=== PATIENT | male | born 1975 | race Caucasian/White ===

== ENCOUNTER 2016-07-23 06:29 | Emergency (ER) | payer MEDICAID ==
--- NOTE | 2016-07-23 06:29 | EDPHY ---
H & P Time Seen by Provider: 07/23/16 06:29 HPI/ROS: CHIEF COMPLAINT: Nausea vomiting and alcohol withdrawal HISTORY OF PRESENT ILLNESS: This 40-year-old man presents with but full body pain and tremors and vomiting after stopping alcohol last night. He says he has not been sober for 8 months. This morning at 200 he started feeling tremulous and had body aches and nausea and vomiting without hematemesis or coffee-ground emesis. Symptoms moderate. He received 100 mcg of fentanyl IV from the paramedics as well as intravenous Phenergan and now feels a little bit better. He does not have a history of alcohol withdrawal seizures or delirium tremens. REVIEW OF SYSTEMS: Eye: no change in vision ENT: no sore throat Cardiac: no chest pain or syncope Pulmonary: no cough or SOB Abdomen: HPI, no specific abdominal pain Musculoskeletal: no back pain Skin: no rash Neuro: no headache Constitutional: no fever : no urinary symptoms A comprehensive 10 point review of systems is otherwise negative aside from elements mentioned in the history of present illness. PAST MEDICAL HISTORY: Hypertension and alcoholism Social history: recent dispute with [employer], alcohol last night. General Appearance: Alert and conversant, cooperative. Eyes: No scleral icterus. ENT, Mouth: Dry mucous membranes. Respiratory: Normal respiratory effort, breath sounds equal, lungs are clear to auscultation. Cardiovascular: Regular rate and rhythm. Gastrointestinal: Abdomen is soft and non tender. Neurological: Alert and oriented x3. Normally conversant. Face symmetric, normal movement and sensation in all extremities. Not tremulous. Skin: Warm and dry, no rashes. Musculoskeletal: No peripheral edema and no joint swelling. Psychiatric: Not agitated. Emergency Department course/MDM: Patient does not have further nausea after antiemetics by the EMS. Normal saline 2 L IV in the emergency department. This is for dehydration and nausea and vomiting. Patient declined referral to arc or detox. His blood pressure is noted, and he has a history of hypertension but has not taken his meds in a couple of days. He does not have presentation suggestive of hypertensive emergency. Patient is not tremulous and does not have signs or symptoms of severe alcohol withdrawal or delirium tremens. Zofran 4 mg IV as well. Feels better after treatment, no further vomiting, stable for discharge. Constitutional: Initial Vital Signs Temperature (C) 36.6 C 07/23/16 06:36 Heart Rate 88 07/23/16 06:36 Respiratory Rate 16 07/23/16 06:36 Blood Pressure 161/118 H 07/23/16 06:36 O2 Sat (%) 92 07/23/16 06:36 O2 Delivery Mode Room Air Allergies/Adverse Reactions: No Known Allergies Allergy (Verified 07/23/16 06:35) Home Medications: Medication Instructions Recorded Lisinopril 07/23/16 Losartan Potassium 07/23/16 Medical Decision Making Differential Diagnosis: Differential diagnosis considered for nausea and vomiting including but not limited to gastroenteritis, gastritis, appendicitis, and medication side effect. - Data Points Medications Given: Discontinued Medications Sodium Chloride (Ns) 1,000 mls @ 0 mls/hr IV ONCE ONE PRN Reason: Wide Open Stop: 07/23/16 06:47 Last Admin: 07/23/16 06:50 Dose: 1,000 mls Sodium Chloride (Ns) 1,000 mls @ 0 mls/hr IV ONCE ONE PRN Reason: Wide Open Stop: 07/23/16 06:47 Last Admin: 07/23/16 06:50 Dose: 1,000 mls Ondansetron HCl (Zofran) 4 mg IVP EDNOW ONE Stop: 07/23/16 08:12 Last Admin: 07/23/16 08:15 Dose: 4 mg Departure - Departure Disposition: Home, Routine, Self-Care Clinical Impression: Nausea & vomiting Condition: Good Instructions: Acute Nausea and Vomiting (ED) Referrals: Patient,NotPresent [Unknown] - As per Instructions (Dr. Delaney your PCP at the [facility] [Outside] - As per Instructions
[2016-07-23 06:39] VITALS: RESP 16; TEMP 97.9
[2016-07-23] MEDS ORDERED: NS 1,000 ML IV ONE ×2 (06:46)
[2016-07-23] MEDS ORDERED: ONDANSETRON 4 MG/2 ML VIAL IVP ONE (08:11)
[2016-07-23] MEDS ORDERED: ONDANSETRON 4 MG/2 ML VIAL ONE (08:11)
[2016-07-23 08:16] VITALS: BP 135/90; PULSE 85; O2SAT 96
== END 2016-07-23 08:57 | disposition home or self-care (01) ==
LOC: EDUNIT# → EEVIPCON 06:29
DX: R11.2 Nausea with vomiting, unspecified (principal); I10 Essential (primary) hypertension
CPT/HCPCS: 96374; J2405

== ENCOUNTER 2016-07-23 10:31 | Emergency (ER) | payer MEDICAID ==
[2016-07-23] MEDS ORDERED: NS 1,000 ML IV ONE ×3 (10:51→11:19)
[2016-07-23] MEDS ORDERED: PROMETHAZINE HCL 25 MG/ML INJ ONE (10:52)
[2016-07-23] MEDS ORDERED: LORazepam 2 MG/ML INJ ONE (10:59)
[2016-07-23] MEDS ORDERED: PROMETHAZINE HCL 25 MG/ML INJ IVP ONE (11:00)
[2016-07-23] MEDS ORDERED: LORazepam 2 MG/ML INJ IVP ONE ×2 (11:00→12:58)
--- NOTE | 2016-07-23 11:04 | EDPHY ---
H & P Time Seen by Provider: 07/23/16 10:51 HPI/ROS: CHIEF COMPLAINT: Nausea vomiting and alcohol withdrawal HISTORY OF PRESENT ILLNESS: This 40-year-old man presented earlier this morning with but full body pain and tremors and vomiting after stopping alcohol last night. He says he has not been sober for 8 months. This morning at 200 he started feeling tremulous and had body aches and nausea and vomiting without hematemesis or coffee-ground emesis. Symptoms moderate. He was treated in the emergency department, felt well and walked home. At home he said front of his computer and tried to drink water and had recurrent nausea and vomiting and returns. He also feels more shaky now. REVIEW OF SYSTEMS: Eye: no change in vision ENT: no sore throat Cardiac: no chest pain or syncope Pulmonary: no cough or SOB Abdomen: HPI, no specific abdominal pain Musculoskeletal: no back pain Skin: no rash Neuro: no headache Constitutional: no fever : no urinary symptoms A comprehensive 10 point review of systems is otherwise negative aside from elements mentioned in the history of present illness. PAST MEDICAL HISTORY: Hypertension and alcoholism Social history: recent dispute with [employer], alcohol last night. General Appearance: Alert and conversant, cooperative. Eyes: No scleral icterus. ENT, Mouth: Dry mucous membranes. Respiratory: Normal respiratory effort, breath sounds equal, lungs are clear to auscultation. Cardiovascular: Regular rate and rhythm. Gastrointestinal: Abdomen is soft and non tender. Neurological: Alert and oriented x3. Normally conversant. Face symmetric, normal movement and sensation in all extremities. Mildly tremulous at this time Skin: Warm and dry, no rashes. Musculoskeletal: No peripheral edema and no joint swelling. Psychiatric: Not agitated. Emergency Department course/MDM: Phenergan 12.5 mg IV and Ativan 2 mg IV. The patient does now have tachycardia and tremor consistent with alcohol withdrawal. His Breathalyzer also confirms that his level is very low. 1214: Hematocrit reviewed and is 30, approximately 10 point down from previous. Patient denies red blood per rectum or melena, rectal exam performed and shows yellow brown stool sent to lab for fecal occult blood testing. 1257: Feels better at this time, thinks he can go home and wants to go home, heart rate is 118 and still mildly tremulous. 3rd L IV normal saline and 1 mg IV Ativan. His anemia is noted but unlikely to be acute upper GI bleed. The decrease is since April 30 of last year, will be seen by case management to help ensure outpatient follow-up. The patient was again offered detox and again declined. 1336: Feels better, no vomiting, wants to be discharged, heart rate in the upper 90s. HR consistent with mild alcohol withdrawal. Not tremulous any more. Smoking Status: Never smoked Constitutional: Initial Vital Signs Temperature (C) 36.6 C 07/23/16 10:32 Heart Rate 136 H 07/23/16 10:32 Respiratory Rate 24 H 07/23/16 10:32 Blood Pressure 155/111 H 07/23/16 10:32 O2 Sat (%) 97 07/23/16 10:32 O2 Delivery Mode Room Air Allergies/Adverse Reactions: No Known Allergies Allergy (Verified 07/23/16 06:35) Home Medications: Medication Instructions Recorded Lisinopril 07/23/16 Losartan Potassium 07/23/16 Medical Decision Making Differential Diagnosis: Differential diagnosis considered for nausea and vomiting including but not limited to gastroenteritis, gastritis, appendicitis, and medication side effect. - Data Points Laboratory Results: Laboratory Results 07/23/16 11:44 07/23/16 11:44 07/23/16 07/23/16 12:24 11:44 WBC 4.79 10^3/uL (3.80-9.50) RBC 2.95 L 10^6/uL (4.40-6.38) Hgb 10.9 L g/dL (13.7-17.5) Hct 30.9 L % (40.0-51.0) MCV 104.7 H fL (81.5-99.8) MCH 36.9 H pg (27.9-34.1) MCHC 35.3 g/dL (32.4-36.7) RDW 13.4 % (11.5-15.2) Plt Count 218 10^3/uL (150-400) MPV 9.9 fL (8.7-11.7) Neut % (Auto) 66.9 % (39.3-74.2) Lymph % (Auto) 21.5 % (15.0-45.0) [place] % (Auto) 8.4 % (4.5-13.0) Eos % (Auto) 0.2 L % (0.6-7.6) Baso % (Auto) 1.5 % (0.3-1.7) Nucleat RBC Rel Count 0.0 % (0.0-0.2) Absolute Neuts (auto) 3.21 10^3/uL (1.70-6.50) Absolute Lymphs (auto) 1.03 10^3/uL (1.00-3.00) Absolute Monos (auto) 0.40 10^3/uL (0.30-0.80) Absolute Eos (auto) 0.01 L 10^3/uL (0.03-0.40) Absolute Basos (auto) 0.07 10^3/uL (0.02-0.10) Absolute Nucleated RBC 0.00 10^3/uL (0-0.01) Immature Gran % 1.5 H % (0.0-1.1) Immature Gran # 0.07 10^3/uL (0.00-0.10) Sodium 147 H mEq/L (134-144) Potassium 3.8 mEq/L (3.5-5.2) Chloride 115 H mEq/L (97-110) Carbon Dioxide 18 L mEq/l (22-31) Anion Gap 14 mEq/L (8-16) BUN 5 L mg/dL (7-23) Creatinine 0.8 mg/dL (0.7-1.3) Estimated GFR > 60 Glucose 82 mg/dL (70-100) Calcium 7.4 L mg/dL (8.5-10.4) Stool Occult Bld Scrn NEGATIVE (NEGATIVE) Medications Given: Discontinued Medications Sodium Chloride (Ns) 1,000 mls @ 0 mls/hr IV ONCE ONE PRN Reason: Wide Open Stop: 07/23/16 10:52 Last Admin: 07/23/16 10:53 Dose: 1,000 mls Sodium Chloride (Ns) 1,000 mls @ 0 mls/hr IV ONCE ONE PRN Reason: Wide Open Stop: 07/23/16 11:20 Last Admin: 07/23/16 11:27 Dose: 1,000 mls Sodium Chloride (Ns) 1,000 mls @ 0 mls/hr IV ONCE ONE PRN Reason: Wide Open Stop: 07/23/16 11:20 Last Admin: 07/23/16 13:04 Dose: 1,000 mls Lorazepam (Ativan Injection) 2 mg IVP EDNOW ONE Stop: 07/23/16 11:01 Last Admin: 07/23/16 11:03 Dose: 2 mg Lorazepam (Ativan Injection) 1 mg IVP EDNOW ONE Stop: 07/23/16 12:59 Last Admin: 07/23/16 13:04 Dose: 1 mg Promethazine HCl (Phenergan) 12.5 mg IVP ONCE ONE Stop: 07/23/16 11:01 Last Admin: 07/23/16 11:03 Dose: 12.5 mg Promethazine HCl (Phenergan 25 Mg Prepack #4) 1 btl TAKEHOME EDNOW ONE Stop: 07/23/16 11:20 Last Admin: 07/23/16 13:32 Dose: 1 btl Departure - Departure Disposition: Home, Routine, Self-Care Clinical Impression: Nausea & vomiting, Alcohol withdrawal, Anemia Instructions: Promethazine (By mouth), Alcohol Withdrawal (ED), Anemia (ED) Additional Instructions: Nathaniel, As we discussed today, it is important that you make a follow-up appointment with your primary care provider due to your anemia. We also discussed you potentially calling [facility] here in [place]. They are able to take your Medicaid. The number at [facility] is . The address is [address] [place] [address]. They are able to access your lab reports from today. Referrals: [facility] [Outside] - As per Instructions
[2016-07-23] MEDS ORDERED: PROMETHAZINE 25 MG PREPACK #4 BTL TAKEHOME ONE ×2 (11:19→13:32)
[2016-07-23 11:53] LABS: % IMMATURE GRANULYOCYTES 1.5 % (0.0-1.1); ABSOLUTE IMMATURE GRANULOCYTES 0.07 10^3/uL (0.00-0.10); ADD DIFF? NO; ADD MORPH? NO; ADD SCAN? NO; ATYPICAL LYMPHOCYTE FLAG 10 (0-99); FRAGMENT RBC FLAG 0 (0-99); HEMATOCRIT 30.9 % (40.0-51.0); HEMOGLOBIN 10.9 g/dL (13.7-17.5); LEFT SHIFT FLG 10 (0-99); LIPEMIA HEMOLYSIS FLAG 90 (0-99); MEAN CELL HEMOGLOBIN 36.9 pg (27.9-34.1); MEAN CELL HEMOGLOBIN CONCENTR. 35.3 g/dL (32.4-36.7); MEAN CELL VOLUME 104.7 fL (81.5-99.8); MEAN PLATELET VOLUME 9.9 fL (8.7-11.7); PLATELET CLUMPS FLAG 10 (0-99); PLATELET COUNT 218 10^3/uL (150-400); RED BLOOD CELL COUNT 2.95 10^6/uL (4.40-6.38); RED CELL DISTRIBUTION WIDTH 13.4 % (11.5-15.2)
[2016-07-23 12:17] LABS: ANION GAP 14 mEq/L (8-16); CALCIUM 7.4 mg/dL (8.5-10.4); CARBON DIOXIDE 18 mEq/l (22-31); CHLORIDE 115 mEq/L (97-110); CREATININE 0.8 mg/dL (0.7-1.3); GLOMERULAR FILTRATION RATE > 60; GLUCOSE 82 mg/dL (70-100); POTASSIUM 3.8 mEq/L (3.5-5.2); SODIUM 147 mEq/L (134-144)
[2016-07-23 14:06] VITALS: RESP 16; O2SAT 93
[2016-07-23 14:21] VITALS: BP 143/97; PULSE 102; TEMP 98.6
== END 2016-07-23 14:21 | disposition home or self-care (01) ==
DX: R11.2 Nausea with vomiting, unspecified (principal); F10.239 Alcohol dependence with withdrawal, unspecified; D64.9 Anemia, unspecified; I10 Essential (primary) hypertension
CPT/HCPCS: 96374; J2550

== ENCOUNTER 2016-09-07 17:48 | Emergency (ER) | payer MEDICAID ==
[2016-09-07 17:53] VITALS: TEMP 98.1; O2SAT 95
--- NOTE | 2016-09-07 18:49 | EDPHY ---
H & P Time Seen by Provider: 09/07/16 18:01 HPI/ROS: This is a 40-year-old male presenting to emergency department, ambulatory with an antalgic gait complaining of a left lower leg My back pain. He states he drinks every night, last night he tripped and fell, hitting the cement curb around 2 or 3 o'clock this morning. Stated when he was sober this morning started having increased pain lower leg and increased pain with ambulation. Any other injuries. REVIEW OF SYSTEMS: Constitutional: No fever no chills Cardiac: No chest pain Gastrointestinal: No abdominal pain Musculoskeletal: Left lower leg pain, increased with ambulation Skin: No rash Neurological: No headache or dizziness Smoking Status: Never smoked Physical Exam: CONSTITUTIONAL: patient appeared well nourished, non-ill appearing and normally developed. No acute distress. Vital signs as documented. HEENT: Normocephalic atraumatic NECK: Supple, No C-spine vertebral tenderness, FROM without pain RESP: Non-labored resp effort GI: Abd soft NTTP NEURO: AAOx3, ambulatory with an antalgic gait EXTREMITIES: Left lateral lower extremity tenderness on palpating FROM with pain, no obvious deformity, mild swelling noted. Positive cms intact SKIN: Warm and dry, no lacerations or abrasions noted PSYCH: Normal affect, calm, no distress Constitutional: Initial Vital Signs Temperature (C) 36.7 C 09/07/16 17:49 Heart Rate 99 09/07/16 17:49 Respiratory Rate 16 09/07/16 17:49 Blood Pressure 158/97 H 09/07/16 17:49 O2 Sat (%) 95 09/07/16 17:49 O2 Delivery Mode Room Air Allergies/Adverse Reactions: No Known Allergies Allergy (Verified 07/23/16 06:35) Home Medications: Medication Instructions Recorded Lisinopril 07/23/16 HCTZ (*) 09/07/16 Medical Decision Making - Diagnostics Imaging: Findings: There is a nondisplaced hairline fracture coursing obliquely through the proximal fibular shaft and metaphysis. Mineralization is normal. The remainder of the tibia and fibula appear normal. Impression: Hairline fracture proximal fibula. This suggests the possibility of a long interosseous ligament tear. If clinically indicated MRI of the calf might be considered. ED Course/Re-evaluation: Discussed the plan of care: X-rays left tib-fib positive for proximal fibula fracture, knee immobilizer placed, crutches given with instructions and demonstration. CMS intact. Discharge home---> stable, discussed discharge instructions Differential Diagnosis: Differential diagnosis considered but not limited to fibula dislocation, tibial fracture and DVT Departure - Departure Disposition: Home, Routine, Self-Care Clinical Impression: Fibula upper end fracture Qualifiers: Encounter type: initial encounter Fracture type: closed Fracture morphology: other fracture Laterality: left Qualified Code(s): S82.832A - Other fracture of upper and lower end of left fibula, initial encounter for closed fracture Condition: Good Instructions: Leg Fracture (ED), Crutch Instructions (ED) Additional Instructions: Discussed discharge instructions with patient 1. Within the next 2 weeks follow -up with your primary care provider 2. Use knee immobilizer for comfort and support. Use crutches as needed to decrease weight-bearing on left leg 3. Elevate when possible, decreased prolonged pressure on the left leg, ice 15 minutes several times a day to help decrease swelling. 4. Follow up with your therapist, to discuss decreasing alcohol drinking Referrals: Marva Fajardo, ALLAN [Primary Care Provider] - As per Instructions
[2016-09-07 19:25] VITALS: BP 164/114; PULSE 98; RESP 14
== END 2016-09-07 19:24 | disposition home or self-care (01) ==
LOC: EEVIPCON 17:48
DX: S82.832A Other fracture of upper and lower end of left fibula, initial encounter for closed fracture (principal); W01.198A Fall on same level from slipping, tripping and stumbling with subsequent striking against other object, initial encounter
CPT/HCPCS: L1830

== ENCOUNTER 2017-04-27 10:40 | Emergency (ER) | payer MEDICAID ==
[2017-04-27 10:47] VITALS: RESP 18; TEMP 98.2
[2017-04-27] MEDS ORDERED: LORazepam 2 MG/ML INJ IVP ONE ×2 (11:09→12:14)
[2017-04-27] MEDS ORDERED: NS 1,000 ML IV ONE (11:09)
--- NOTE | 2017-04-27 11:17 | EDPHY ---
H & P Stated Complaint: seizure - Personal History Current Tetanus/Diphtheria Vaccine: Yes Current Tetanus Diphtheria and Acellular Pertussis (TDAP): Yes Tetanus Vaccine Date: 2000 - Medical/Surgical History Hx Asthma: No Hx Chronic Respiratory Disease: No Hx Diabetes: No Hx Cardiac Disease: No Hx Renal Disease: No Hx Cirrhosis: No Hx Alcoholism: No Hx HIV/AIDS: No Hx Splenectomy or Spleen Trauma: No Other PMH: PTSD, HTN-doesnt take meds, ETOH abuse,marijuana use, appy, ETOH W/D SEIZURES, DT'S - Social History Smoking Status: Never smoked Time Seen by Provider: 04/27/17 11:06 HPI/ROS: CHIEF COMPLAINT: "I think I had a seizure " HISTORY OF PRESENT ILLNESS: 41-year-old male arrives via ambulance after a witnessed seizure-like activity while he was at the [employer] bank. History of heavy daily alcohol use, last drink of alcohol was last evening. Denies hallucination. Denies suicidal homicidal ideation. Denies complaints of pain or trauma. PRIMARY CARE PROVIDER: REVIEW OF SYSTEMS: A ten point review of systems was performed and is negative with the exception of the items mentioned in the HPI PAST MEDICAL/SURGICAL HISTORY: no anticoagulant use, no relevant medical/ surgical history SOCIAL HISTORY: Heavy daily alcohol use PHYSICAL EXAM 1) GENERAL: Well-developed, well-nourished, alert and oriented. Tremulous Answering questions appropriately. 2) HEAD: Normocephalic, atraumatic 3) HEENT: Pupils equal, round, reactive to light bilaterally. Negative Horners. Nasopharynx, oropharynx, clear. No deformity or angulation of nose. No septal hematoma. No rhinorrhea. No oral trauma. Ears bilaterally with normal tympanic membranes. No hemotympanum. No fluid or blood in the external auditory canal. No raccoon eyes. No Tapia sign. Teeth are normally aligned with no gross malocclusion, TMJ bilaterally nontender, facial bones nontender including the zygomatic arch, maxilla mandible. 4) NECK: No cervical collar is on. Posterior cervical spine is nontender, no stepoff, no effusion. Full range of motion which does not elicit any midline cervical spine pain, no posterior midline tenderness, no step-off. 5) LUNGS: Clear to auscultation bilaterally, no wheezes, no rhonchi, no retractions. No obvious signs of trauma. No chest wall pain. No flaring, no grunting. Moving symmetrically. No crepitus. 6) HEART: Regular rate and rhythm, 7) ABDOMEN: No guarding, no rebound, no focal tenderness, no peritoneal signs, no signs of trauma, no ecchymosis 8) MUSCULOSKELETAL: Tremulous Moving all extremities, no focal areas of tenderness, no obvious trauma. 9) BACK: No midline vertebral tenderness, no fluctuance, no step-off, no obvious trauma, no visual or palpable abnormality. 10) SKIN: No laceration. No abrasion DIFFERENTIAL DIAGNOSIS: in no particular order including but not limited to alcohol withdrawl alcohol withdrawal, epilepsy, syncope (Joana,Vivek Evelyn) Constitutional: Initial Vital Signs Temperature (C) 36.8 C 04/27/17 10:43 Heart Rate 138 H 04/27/17 10:43 Respiratory Rate 18 04/27/17 10:43 Blood Pressure 172/121 H 04/27/17 10:43 O2 Sat (%) 92 04/27/17 10:43 O2 Delivery Mode Room Air Allergies/Adverse Reactions: No Known Allergies Allergy (Verified 07/23/16 06:35) Home Medications: Medication Instructions Recorded Unobtainable 04/27/17 Medical Decision Making ED Course/Re-evaluation: 11:17 a.m.: Patient is tremulous, history of heavy daily alcohol use. Suspect acute alcohol withdrawal seizure, currently mentating clearly with no evidence of delirium at this time. Will administer benzodiazepine, IV fluids in observed for a period of time, re-evaluate 12:15 a.m.: Re-evaluation after 2 mg of IV Ativan. His heart rate is in the 115s, remains tremulous. Will administer further benzodiazepine as well as oral thiamine folate and multivitamin. 1:19 p.m.: Patient was re-evaluated, he is sleeping but easily woken, mentating clearly, clear speech, awake alert oriented person place time events, stable steady gait. He remains tremulous however with heart rate 120-130. I recommended admission to the hospital. He wants to leave. I expressed the patient my concerns over his tachycardia which may be related to acute alcohol withdrawal and I expressed to the patient that in my professional opinion he necessitates further evaluation. States that he would like to leave. In my professional opinion, the patient fully understands the risks to their health and well-being by leaving the emergency department AGAINST MEDICAL ADVICE. Patient states that he would like to leave. Have explained him the risks of leaving AGAINST MEDICAL ADVICE which include, but are not limited to, , permanent and chronic disability, permanent and chronic loss of income, need for permanent and long-term care, and other situations and circumstances too numerous to mention herein. I think the patient has the capacity to fully understand these risks. I believe him to have decision-making capacity. I have offered ample opportunity to answer questions. I have offered to speak with family and/or friends regarding this issue as well. Patient completed AMA paperwork. Patient has been informed that they are welcome to return to emergency department at any point for reevaluation. Patient was also seen exam by Dr. Soraida De La Torre in the ER (Vivek Bernard) Other Provider: The patient was evaluated and managed by the Physician Audit Analyst. I discussed the patient's presentation and course with the physician perioperative assistant and agree with the evaluation. My co-signature indicates that I have reviewed this chart and I agree with the findings and plan of care as documented. I am the secondary supervising physician. (Soraida De La Torre) - Data Points Laboratory Results: Laboratory Results 04/27/17 Unknown 04/27/17 Unknown Medications Given: Discontinued Medications Folic Acid (Folic Acid) 1 mg PO EDNOW ONE Stop: 04/27/17 12:15 Last Admin: 04/27/17 12:20 Dose: 1 mg Sodium Chloride (Ns) 1,000 mls @ 0 mls/hr IV ONCE ONE PRN Reason: Wide Open Stop: 04/27/17 11:10 Last Admin: 04/27/17 11:16 Dose: 1,000 mls Lorazepam (Ativan Injection) 2 mg IVP EDNOW ONE Stop: 04/27/17 11:10 Last Admin: 04/27/17 11:17 Dose: 2 mg Lorazepam (Ativan Injection) 2 mg IVP EDNOW ONE Stop: 04/27/17 12:15 Last Admin: 04/27/17 12:20 Dose: 2 mg Multivitamins (Tab-A-Sita) 1 each PO EDNOW ONE Stop: 04/27/17 12:15 Last Admin: 04/27/17 12:19 Dose: 1 each Thiamine HCl (Vitamin B-1) 100 mg PO EDNOW ONE Stop: 04/27/17 12:15 Last Admin: 04/27/17 12:19 Dose: 100 mg Departure - Departure Disposition: Against Medical Advice Clinical Impression: Alcohol withdrawal Condition: Good Referrals: Patient,NotPresent [Unknown] - As per Instructions
[2017-04-27 11:20] LABS: % IMMATURE GRANULYOCYTES 0.3 % (0.0-1.1); ABSOLUTE IMMATURE GRANULOCYTES 0.03 10^3/uL (0.00-0.10); ABSOLUTE NRBC COUNT 0.03 10^3/uL (0-0.01); ADD DIFF? NO; ADD MORPH? NO; ADD SCAN? NO; ATYPICAL LYMPHOCYTE FLAG 0 (0-99); FRAGMENT RBC FLAG 0 (0-99); HEMOGLOBIN 15.1 g/dL (13.7-17.5); LEFT SHIFT FLG 0 (0-99); LIPEMIA HEMOLYSIS FLAG 90 (0-99); MEAN CELL HEMOGLOBIN 40.4 pg (27.9-34.1); MEAN CELL VOLUME 112.3 fL (81.5-99.8); NRBC-AUTO% 0.3 % (0.0-0.2); PLATELET CLUMPS FLAG 0 (0-99); PLATELET COUNT 220 10^3/uL (150-400); RED BLOOD CELL COUNT 3.74 10^6/uL (4.40-6.38); RED CELL DISTRIBUTION WIDTH 14.1 % (11.5-15.2)
[2017-04-27 11:27] LABS: ANION GAP 35 mEq/L (8-16); CALCIUM 9.9 mg/dL (8.5-10.4); CARBON DIOXIDE 12 mEq/l (22-31); CHLORIDE 96 mEq/L (97-110); CREATININE 0.9 mg/dL (0.7-1.3); ETHANOL SERUM < 10 mg/dL (0-10); GLOMERULAR FILTRATION RATE > 60; GLUCOSE 207 mg/dL (70-100); POTASSIUM 3.2 mEq/L (3.5-5.2); SODIUM 143 mEq/L (134-144)
[2017-04-27] MEDS ORDERED: THIAMINE HCL 100 MG TAB PO ONE (12:14)
[2017-04-27] MEDS ORDERED: MULTIVITAMINS 1 EACH TAB PO ONE (12:14)
[2017-04-27] MEDS ORDERED: FOLIC ACID 1 MG TAB PO ONE (12:14)
[2017-04-27 13:21] VITALS: BP 167/111; PULSE 124; O2SAT 95
== END 2017-04-27 13:51 | disposition left against medical advice (07) ==
LOC: EDUNIT# → EEVIPCON 10:40
DX: F10.239 Alcohol dependence with withdrawal, unspecified (principal); I10 Essential (primary) hypertension
CPT/HCPCS: 96374; G0480; J2060

== ENCOUNTER 2018-06-05 16:40 | Emergency (ER) | payer MEDICAID ==
--- NOTE | 2018-06-05 16:55 | EDPHY ---
H & P Time Seen by Provider: 06/05/18 16:50 HPI/ROS: CHIEF COMPLAINT: Nausea and vomiting HISTORY OF PRESENT ILLNESS: Patient with a history of alcoholism, drinks daily vodka, last drink 2:00 a.m. Today. Started having nausea vomiting around 10:00 p.m. Last night. Associated with a little bit of epigastric discomfort but no real generalized abdominal pain. Associated with feeling hot and cold and worse with any attempted oral intake. He does say that he has had some black or bloody stools over the last week. Of note when he was seen in 2017 in July by myself he was noted to have a hematocrit of 30 which was 10 point down from previous and he did not follow up since then for further evaluation. REVIEW OF SYSTEMS: Eye: no change in vision ENT: no sore throat Cardiac: no chest pain or syncope Pulmonary: No coughing, patient has been gradually getting more short of breath with exertion. Abdomen: no vomiting, diarrhea, abdominal pain Musculoskeletal: no back pain Skin: no rash Neuro: no headache Constitutional: no fever : no urinary symptoms A comprehensive 10 point review of systems is otherwise negative aside from elements mentioned in the history of present illness. PAST MEDICAL HISTORY: Previous visit dated 07/23/2016 reviewed. Includes hypertension alcoholism. PTSD, appendectomy, hypertension Social history: Nonsmoker General Appearance: Alert and conversant, cooperative. Eyes: Pale conjunctiva. ENT, Mouth: Normal mucous membranes. Respiratory: Normal respiratory effort, breath sounds equal, lungs are clear to auscultation. Cardiovascular: Regular rate and rhythm. Gastrointestinal: Abdomen is soft and non tender. No rebound or guarding. Neurological: Alert, face symmetric, normal motor and sensory in extremities. Not tremulous, speech fluent, not ataxic, ambulatory. Skin: Warm and dry, no rashes. Musculoskeletal: No peripheral edema. Psychiatric: Not agitated. Emergency Department course/MDM: Patient presents with nausea vomiting, some symptoms which could represent GI bleed. Does not have tremor but does have tachycardia. Zofran 4 mg IV, normal saline hydration, labs to include CBC chemistry lipase and LFTs. 1920: Slightly tremulous, no further vomiting. Additional 1 L saline and 1 mg IV Ativan. Stable for discharge with outpatient referral. Smoking Status: Never smoked Constitutional: Initial Vital Signs Temperature (C) 37 C 12/26/18 16:44 Heart Rate 103 H 06/05/18 16:44 Respiratory Rate 16 06/05/18 16:44 Blood Pressure 184/105 H 06/05/18 16:44 O2 Sat (%) 96 06/05/18 16:44 O2 Delivery Mode Room Air Allergies/Adverse Reactions: No Known Allergies Allergy (Verified 06/05/18 16:52) Home Medications: Medication Instructions Recorded NK [No Known Home Meds] 06/05/18 Medical Decision Making - Diagnostics EKG Interpretation: 12-lead EKG interpreted by me; official reading is in computer system. My interpretation is sinus rhythm rate 90, QT 399. - Data Points Laboratory Results: Laboratory Results 06/05/18 17:50 06/05/18 17:50 06/05/18 06/05/18 17:50 17:50 WBC 9.27 10^3/uL 10^3/uL (3.80-9.50) RBC 4.51 10^6/uL 10^6/uL (4.40-6.38) Hgb 15.3 g/dL g/dL (13.7-17.5) Hct 44.7 % % (40.0-51.0) MCV 99.1 fL fL (81.5-99.8) MCH 33.9 pg pg (27.9-34.1) MCHC 34.2 g/dL g/dL (32.4-36.7) RDW 14.5 % % (11.5-15.2) Plt Count 293 10^3/uL 10^3/uL (150-400) MPV 10.3 fL fL (8.7-11.7) Neut % (Auto) 76.4 % H % (39.3-74.2) Lymph % (Auto) 12.3 % L % (15.0-45.0) Colbert % (Auto) 9.3 % % (4.5-13.0) Eos % (Auto) 0.2 % L % (0.6-7.6) Baso % (Auto) 1.3 % % (0.3-1.7) Nucleat RBC Rel Count 0.0 % % (0.0-0.2) Absolute Neuts (auto) 7.08 10^3/uL H 10^3/uL (1.70-6.50) Absolute Lymphs (auto) 1.14 10^3/uL 10^3/uL (1.00-3.00) Absolute Monos (auto) 0.86 10^3/uL H 10^3/uL (0.30-0.80) Absolute Eos (auto) 0.02 10^3/uL L 10^3/uL (0.03-0.40) Absolute Basos (auto) 0.12 10^3/uL H 10^3/uL (0.02-0.10) Absolute Nucleated RBC 0.00 10^3/uL 10^3/uL (0-0.01) Immature Gran % 0.5 % % (0.0-1.1) Immature Gran # 0.05 10^3/uL 10^3/uL (0.00-0.10) Sodium 138 mEq/L mEq/L (135-145) Potassium 4.5 mEq/L mEq/L (3.5-5.2) Chloride 102 mEq/L mEq/L (97-110) Carbon Dioxide 21 mEq/l L mEq/l (22-31) Anion Gap 15 mEq/L H mEq/L (6-14) BUN 4 mg/dL L mg/dL (7-23) Creatinine 0.6 mg/dL L mg/dL (0.7-1.3) Estimated GFR > 60 Glucose 163 mg/dL H mg/dL (70-100) Calcium 9.3 mg/dL mg/dL (8.5-10.4) Total Bilirubin 1.6 mg/dL H mg/dL (0.1-1.4) Conjugated Bilirubin 1.0 mg/dL H mg/dL (0.0-0.5) Unconjugated Bilirubin 0.6 mg/dL mg/dL (0.0-1.1) AST 140 IU/L H IU/L (17-59) ALT 46 IU/L IU/L (21-72) Alkaline Phosphatase 127 IU/L H IU/L (38-126) Total Protein 8.1 g/dL g/dL (6.3-8.2) Albumin 4.6 g/dL g/dL (3.5-5.0) Lipase 53 IU/L IU/L (23-300) Specimen Hemolysis 126 Medications Given: Discontinued Medications Sodium Chloride (Ns) 1,000 mls @ 0 mls/hr IV EDNOW ONE; Wide Open PRN Reason: Protocol Stop: 06/05/18 17:11 Last Admin: 06/05/18 18:07 Dose: 1,000 mls Metoclopramide HCl (Reglan Injection) 10 mg IVP EDNOW ONE Stop: 06/05/18 18:29 Last Admin: 06/05/18 18:32 Dose: 10 mg Ondansetron HCl (Zofran) 4 mg IVP EDNOW ONE Stop: 06/05/18 17:11 Last Admin: 06/05/18 18:08 Dose: 4 mg Departure - Departure Disposition: Home, Routine, Self-Care Clinical Impression: Nausea & vomiting Qualifiers: Vomiting type: unspecified Vomiting Intractability: non-intractable Qualified Code(s): R11.2 - Nausea with vomiting, unspecified Condition: Good Instructions: Acute Nausea and Vomiting (ED) Referrals: Valerie Salinas MD [Medical Doctor] - As per Instructions
[2018-06-05] MEDS ORDERED: NS 1,000 ML IV ONE ×2 (17:10→19:23)
[2018-06-05] MEDS ORDERED: ONDANSETRON 4 MG/2 ML VIAL IVP ONE (17:10)
--- NOTE | 2018-06-05 17:45 | CPEKG ---
Test Reason : OPEN Blood Pressure : / mmHG Vent. Rate : 090 BPM Atrial Rate : 088 BPM P-R Int : 130 ms QRS Dur : 089 ms QT Int : 399 ms P-R-T Axes : 059 022 009 degrees QTc Int : 489 ms Sinus arrhythmia Borderline prolonged QT interval Confirmed by Obed Jha ([id number]) on 06/05/2018 5:44:47 PM Referred By: Confirmed By:Obed Jha
[2018-06-05 18:13] LABS: PLATELET COUNT 293 10^3/uL (150-400)
--- NOTE | 2018-06-05 18:17 | ASMTCMCOM ---
CM Note CM Note Notes: Requested to speak to pt and his sister, Mitzi, re:pt's ETOH abuse and options for treatment. Spoke w/pt and Mitzi at bedside. Discussed and provided information on various Medicaid acute detox, IOP / OP, and also provided info on [facility] ([facility]), and the [facility] option through [facility]. Pt states "I had issues with the [facility] so I stopped going to them awhile ago." Pt states he is not interested in going to [facility] "I've been there before and worked with them for 4 years and they never helped me with what I needed." When it was mentioned that he could potentially be discharged home w/Librium if Mitzi was willing to stay with the pt and administer it, the pt stated "no I've had that, it doesn't help." Mitzi also said she would not feel comfortable with being responsible for admitting the Librium anyway. Pt was strongly encouraged to call the [facility] and look into their SATP and [facility] Personal Choice options. Pt was also strongly encouraged to call [facility], complete the brief screening and schedule an intake appt; pt and Jessica aware that the intake appt may be a week or more out from today. Pt was informed he could even call [facility] while in the ED but pt stated he didn't want to. Pt states "I'll look into the options later." Pt pleasant and appreciative of assistance. CM available for further assistance if needed. Date Signed: 06/05/2018 06:17 PM Electronically Signed By:Gina Delgado RN
[2018-06-05] MEDS ORDERED: METOCLOPRAMIDE 10 MG/2 ML VIAL IVP ONE (18:28)
[2018-06-05] MEDS ORDERED: LORazepam 2 MG/ML INJ IVP ONE (19:23)
[2018-06-05 20:45] VITALS: BP 162/96
== END 2018-06-05 20:44 | disposition home or self-care (01) ==
DX: R11.2 Nausea with vomiting, unspecified (principal); E86.9 Volume depletion, unspecified; F10.20 Alcohol dependence, uncomplicated; I10 Essential (primary) hypertension; F43.10 Post-traumatic stress disorder, unspecified
CPT/HCPCS: 96374; J2060; J2405; J2765

== ENCOUNTER 2018-06-12 14:13 | Inpatient (IN) | payer MEDICAID ==
[2018-06-12] MEDS ORDERED: HALOPERIDOL LACT 5 MG/ML INJ IVP ONE (14:47)
[2018-06-12] MEDS ORDERED: NS 1,000 ML IV ONE (14:47)
--- NOTE | 2018-06-12 14:52 | EDPHY ---
H & P Stated Complaint: n/v x 5 days seen previously - Personal History Current Tetanus Diphtheria and Acellular Pertussis (TDAP): No Tetanus Vaccine Date: 2000 - Medical/Surgical History Hx Asthma: No Hx Chronic Respiratory Disease: No Hx Diabetes: No Hx Cardiac Disease: No Hx Renal Disease: No Hx Cirrhosis: No Hx Alcoholism: Yes Hx HIV/AIDS: No Hx Splenectomy or Spleen Trauma: No Other PMH: PTSD, HTN-doesnt take meds, ETOH abuse,marijuana use, ruptured appendix, ETOH W/D SEIZURES, DT'S - Social History Smoking Status: Never smoked Time Seen by Provider: 06/12/18 14:32 HPI/ROS: CHIEF COMPLAINT: Continued nausea an vomiting HISTORY OF PRESENT ILLNESS: 42-year-old male history of alcoholism, daily block use, seen the ER 6 days ago for same complaint in the ER complaining of continued nausea and vomiting, melanic stools. He continues to drink daily vodka. He has no current desire to go to rehabilitation facility or seek long- term sobriety. He describes early satiety and frequent intractable vomiting. No home antiemetics. He is also complaining of low back pain without radiculopathy, without incontinence or retention, without saddle anesthesia without trauma. No fever no chills. No hematemesis. No hematochezia PRIMARY CARE PROVIDER: No primary care provider REVIEW OF SYSTEMS: 10 systems reviewed and negative with the exception of the elements mentioned in the history of present illness PAST MEDICAL & SURGICAL HISTORY: Appendectomy. Hypertension. PTSD. Alcoholism. SOCIAL HISTORY: Positive for cannabis abuse. Positive for alcohol abuse. Last drink of alcohol was last evening PHYSICAL EXAM (Prior to examination, patient consented to physical exam, hands were washed and my usual and customary physical exam procedures followed) 1) GENERAL: Well-developed, well-nourished, alert and oriented. Appears to be in no acute distress. 2) HEAD: Normocephalic, atraumatic 3) HEENT: Pupils equal, round, reactive to light bilaterally. Sclera anicteric. Nasopharynx, oropharynx, clear, no lesions. Dry mucous membranes. 4) NECK: Full range of motion, no meningeal signs. 5) LUNGS: Clear auscultation bilaterally, no wheezes, no rhonchi, no retractions. 6) HEART: Regular rate and rhythm, no murmur, no heave, no gallop. 7) ABDOMEN: No guarding, no rebound, no focal tenderness, negative McBurney's, negative Segovia's, negative Rovsing's, negative peritoneal sign, unable to elicit abdominal pain 8) MUSCULOSKELETAL: Moving all extremities, no focal areas of tenderness, no obvious trauma. No peripheral edema or discoloration. Patella and Achilles reflexes intact to bilateral strength 5/5. 9) BACK: No CVA tenderness, no midline vertebral tenderness, no fluctuance, no step-off, no obvious trauma, no visual or palpable abnormality. 10) SKIN: No rash, no petechiae. 11) Psychiatric: Patient is oriented X 3, there is no agitation. Answering questions appropriately No tremor. 12) rectal: Brown stool on glove DIFFERENTIAL DIAGNOSIS: In no particular order, including but not limited to acute pancreatitis, gastritis, cannabinoid hyperemesis syndrome, (Joana,Vivek Evelyn) Constitutional: Initial Vital Signs Temperature (C) 36.7 C 06/12/18 14:16 Heart Rate 100 06/12/18 14:16 Respiratory Rate 18 06/12/18 14:16 Blood Pressure 161/114 H 06/12/18 14:16 O2 Sat (%) 94 06/12/18 14:16 O2 Delivery Mode Room Air Allergies/Adverse Reactions: No Known Allergies Allergy (Verified 06/12/18 14:15) Home Medications: Medication Instructions Recorded Herbals/Supplements -Info Only 1 ea PO DAILY 06/12/18 Ondansetron Odt [Zofran Odt 4 mg 4 mg PO Q8 PRN 06/12/18 (*)] Medical Decision Making ED Course/Re-evaluation: 3:58 p.m.: Re-evaluation. Feeling improvement after IV Haldol and Zofran IV fluids. Of note this patient verses the pain last emergency department visit 7 days ago his hematocrit has dropped 11 points (44 --> 33), hemoglobin dropped 4 points (15 --> 11) Brown stool on glove. Does admit to melanic stools. 4:19 p.m.: Informed by laboratory the patient has universally abnormal chemistry laboratory studies may be secondary to suboptimal hematologic sample. Will redraw laboratory study. Discussed case with secondary supervising physician Dr. Ish Portillo in the ER 4:30 p.m.: Patient's stool occult blood is positive. He brown stool on glove but does note melanic stools for the past several days with notable decrease in his H and H. Will plan on admission to hospitalist service. Zantac and Protonix administered. Awaiting repeat chemistry results. 4:47 p.m.: Consultation with hospitalist Dr. Jean Aponte who will admit patient. Will consult gastroenterology 4:57 p.m.: Consultation with gastroenterology Dr Pedersen, request patient remain NPO after midnight, will plan on EGD tomorrow (Vivek Bernard) I did not see this patient while he was in the emergency department. However his care was discussed with the PA while the patient was in the department. I agree with treatment plan and management (Ish Portillo) - Data Points Laboratory Results: Laboratory Results 06/12/18 15:15 06/12/18 16:21 06/12/18 06/12/18 06/12/18 16:25 16:21 15:15 WBC 7.72 10^3/uL 10^3/uL (3.80-9.50) RBC 3.33 10^6/uL L 10^6/uL (4.40-6.38) Hgb 11.3 g/dL L g/dL (13.7-17.5) Hct 33.2 % L % (40.0-51.0) MCV 99.7 fL fL (81.5-99.8) MCH 33.9 pg pg (27.9-34.1) MCHC 34.0 g/dL g/dL (32.4-36.7) RDW 14.7 % % (11.5-15.2) Plt Count 216 10^3/uL 10^3/uL (150-400) MPV 10.0 fL fL (8.7-11.7) Neut % (Auto) 72.2 % % (39.3-74.2) Lymph % (Auto) 14.5 % L % (15.0-45.0) [place]ingham % (Auto) 10.9 % % (4.5-13.0) Eos % (Auto) 1.0 % % (0.6-7.6) Baso % (Auto) 0.8 % % (0.3-1.7) Nucleat RBC Rel Count 0.0 % % (0.0-0.2) Absolute Neuts (auto) 5.57 10^3/uL 10^3/uL (1.70-6.50) Absolute Lymphs (auto) 1.12 10^3/uL 10^3/uL (1.00-3.00) Absolute Monos (auto) 0.84 10^3/uL H 10^3/uL (0.30-0.80) Absolute Eos (auto) 0.08 10^3/uL 10^3/uL (0.03-0.40) Absolute Basos (auto) 0.06 10^3/uL 10^3/uL (0.02-0.10) Absolute Nucleated RBC 0.00 10^3/uL 10^3/uL (0-0.01) Immature Gran % 0.6 % % (0.0-1.1) Immature Gran # 0.05 10^3/uL 10^3/uL (0.00-0.10) Sodium 136 mEq/L mEq/L (135-145) Potassium 3.2 mEq/L L mEq/L (3.5-5.2) Chloride 101 mEq/L mEq/L (97-110) Carbon Dioxide 24 mEq/l mEq/l (22-31) Anion Gap 11 mEq/L mEq/L (6-14) BUN 5 mg/dL L mg/dL (7-23) Creatinine 0.7 mg/dL mg/dL (0.7-1.3) Estimated GFR > 60 Glucose 105 mg/dL H mg/dL (70-100) Calcium 8.7 mg/dL mg/dL (8.5-10.4) Total Bilirubin 1.5 mg/dL H mg/dL (0.1-1.4) Conjugated Bilirubin 1.1 mg/dL H mg/dL (0.0-0.5) Unconjugated Bilirubin 0.4 mg/dL mg/dL (0.0-1.1) AST 91 IU/L H IU/L (17-59) ALT 49 IU/L IU/L (21-72) Alkaline Phosphatase 101 IU/L IU/L (38-126) Total Protein 7.1 g/dL g/dL (6.3-8.2) Albumin 4.1 g/dL g/dL (3.5-5.0) Lipase 43 IU/L IU/L (23-300) Stool Occult Bld Scrn POSITIVE H (NEGATIVE) 06/12/18 15:03 WBC RBC Hgb Hct MCV MCH MCHC RDW Plt Count MPV Neut % (Auto) Lymph % (Auto) [place] % (Auto) Eos % (Auto) Baso % (Auto) Nucleat RBC Rel Count Absolute Neuts (auto) Absolute Lymphs (auto) Absolute Monos (auto) Absolute Eos (auto) Absolute Basos (auto) Absolute Nucleated RBC Immature Gran % Immature Gran # Sodium REJ Potassium TNP Chloride TNP Carbon Dioxide TNP Anion Gap TNP BUN TNP Creatinine TNP Estimated GFR TNP Glucose TNP Calcium TNP Total Bilirubin TNP Conjugated Bilirubin TNP Unconjugated Bilirubin TNP AST TNP ALT TNP Alkaline Phosphatase TNP Total Protein REJ Albumin TNP Lipase REJ Stool Occult Bld Scrn Medications Given: Pantoprazole Sodium (Protonix) 40 mg IVP Q6H NOE Stop: 12/09/18 17:59 Last Admin: 06/12/18 18:26 Dose: 40 mg Promethazine HCl (Phenergan) 6.25 - 12.5 mg IVP Q6HRS PRN PRN Reason: Nausea/Vomiting, Use 2nd Stop: 12/09/18 17:45 Last Admin: 06/12/18 18:24 Dose: 12.5 mg Discontinued Medications Haloperidol Lactate (Haldol Injection) 2.5 mg IVP EDNOW ONE Stop: 06/12/18 14:48 Last Admin: 06/12/18 15:00 Dose: 2.5 mg Sodium Chloride (Ns) 1,000 mls @ 0 mls/hr IV ONCE ONE PRN Reason: Wide Open Stop: 06/12/18 14:48 Last Admin: 06/12/18 15:05 Dose: 1,000 mls Lorazepam (Ativan Injection) 1 mg IVP EDNOW ONE Stop: 06/12/18 15:00 Last Admin: 06/12/18 15:06 Dose: 1 mg Pantoprazole Sodium (Protonix) 40 mg IVP EDNOW ONE Stop: 06/12/18 16:33 Last Admin: 06/12/18 17:07 Dose: 40 mg Potassium Chloride (Klor-Con) 40 meq PO ONCE ONE Stop: 06/12/18 16:59 Last Admin: 06/12/18 17:25 Dose: 40 meq Ranitidine HCl (Zantac) 50 mg IVP EDNOW ONE Stop: 06/12/18 16:33 Last Admin: 06/12/18 17:09 Dose: 50 mg Departure - Departure Disposition: [facility] Inpatient Acute Clinical Impression: Volume depletion, Blood loss anemia Nausea & vomiting Qualifiers: Vomiting type: unspecified Vomiting Intractability: non-intractable Qualified Code(s): R11.2 - Nausea with vomiting, unspecified GI bleed Qualifiers: GI bleed type/associated pathology: melena Qualified Code(s): K92.1 - Melena Condition: Fair
[2018-06-12] MEDS ORDERED: LORazepam 2 MG/ML INJ IVP ONE (14:59)
[2018-06-12 15:25] LABS: PLATELET COUNT 216 10^3/uL (150-400)
[2018-06-12] MEDS ORDERED: PANTOPRAZOLE SODIUM 40 MG VIAL IVP ONE (16:32)
[2018-06-12] MEDS ORDERED: RANITIDINE 50 MG/2 ML VIAL IVP ONE (16:32)
[2018-06-12] MEDS ORDERED: POTASSIUM CL 20 MEQ TAB PO ONE (16:58)
[2018-06-12] MEDS ORDERED: ONDANSETRON 4 MG/2 ML VIAL IVP PRN (17:46)
[2018-06-12] MEDS ORDERED: HYDROCODONE/APAP 5/325 TAB PO PRN (17:46)
[2018-06-12] MEDS ORDERED: ONDANSETRON DISINTEGRATING 4 MG TAB PO PRN (17:46)
[2018-06-12] MEDS ORDERED: PROMETHAZINE HCL 25 MG/ML INJ IVP PRN (17:46)
[2018-06-12] MEDS ORDERED: ACETAMINOPHEN 325 MG TAB PO PRN (17:46)
[2018-06-12] MEDS ORDERED: oxyCODONE IR 5 MG TAB PO PRN (17:46)
[2018-06-12] MEDS ORDERED: MAG HYDROX/AL HYDROX/SIMETH 30 ML UDCUP PO PRN (17:50)
[2018-06-12] MEDS ORDERED: LORazepam 2 MG/ML INJ IVP PRN (17:50)
[2018-06-12] MEDS ORDERED: FLUMAZENIL 0.5 MG/5 ML MDV IVP PRN (17:50)
[2018-06-12] MEDS ORDERED: NS 1,000 ML IV SCH (18:00)
[2018-06-12] MEDS: PANTOPRAZOLE SODIUM 40 MG VIAL IVP SCH (18:26)
--- NOTE | 2018-06-12 22:15 | PDGENHP ---
History and Physical - Chief Complaint n/v/trouble walking/dark stools - History of Present Illness 42 yo M with longstanding hx of alcohol abuse with prior severe withdrawal including withdrawal seizures and multiple ER visits for same comes in today with complaints of ongoing nausea and vomiting and dark stools for the last several days. Patient notes he has been essentially unable to eat for the last 5 days, he will eat and immediately fell full and nauseated and unable to eat more. He has been typically drinking around 1/2 handle of vodka per day, but had his last drink yesterday morning. He notes that he both stopped drinking because he felt so poorly and also because he feels that if he does not quit he will . He is accompanied by his sister who further relates that he has been living essentially as a 'shut in' for the last 4 years, isolating and just drinking heavily. She states that their parents started him drinking at age 15 because they thought it was funny to get him drunk and he has been drinking ever since. He notes he has gotten to the point where he has a hard time walking and has not been able to shower or walk around his house because he is so unsteady and weak. He has never really tried quitting alcohol seriously before although he states he did get counseling through the [facility] before. He does note that he has had very dark stools for about the last 3 days, he denies vomiting blood or coffee grounds or noting blood in his stool. History Information - Allergies/Home Medication List Allergies/Adverse Reactions: No Known Allergies Allergy (Verified 06/12/18 14:15) Home Medications: Herbals/Supplements -Info Only 1 ea PO DAILY 06/12/18 [Last Taken Unknown] Ondansetron Odt [Zofran Odt 4 mg (*)] 4 mg PO Q8 PRN 06/12/18 [Last Taken ] I have personally reviewed and updated: family history, medical history, social history, surgical history - Past Medical History hypertension, psychiatric history (PTSD) Additional medical history: alcohol abuse and withdrawal - Surgical History Reports: appendectomy - Family History Additional family history: alcoholism - Social History Smoking Status: Never smoked Alcohol Use: Heavy Drug Use: Marijuana (daily) Review of Systems Review of Systems: ROS: 10pt was reviewed & negative except for what was stated in HPI & below Physical Exam Physical Exam: Temp Pulse Resp BP Pulse Ox 37.1 C 100 18 156/103 H 93 06/12/18 18:53 06/12/18 18:53 06/12/18 18:53 06/12/18 18:53 06/12/18 18:53 Constitutional: uncomfortable, unkempt Eyes: PERRL, anicteric sclera Ears, Nose, Mouth, Throat: moist mucous membranes, hearing normal Cardiovascular: no murmur, rub, or gallop, tachycardia, No edema Respiratory: no respiratory distress, no rales or rhonchi, clear to auscultation Gastrointestinal: normoactive bowel sounds, soft, non-tender abdomen, No guarding, No rebound Genitourinary: no bladder tenderness Skin: warm, normal color Musculoskeletal: full muscle strength Neurologic: AAOx3 Psychiatric: interacting appropriately, not anxious, not encephalopathic Lab Data & Imaging Review 06/12/18 15:15 06/12/18 16:21 WBC 7.72 10^3/uL (3.80-9.50) 06/12/18 15:15 RBC 3.33 10^6/uL (4.40-6.38) L 06/12/18 15:15 Hgb 11.3 g/dL (13.7-17.5) L 06/12/18 15:15 Hct 33.2 % (40.0-51.0) L 06/12/18 15:15 MCV 99.7 fL (81.5-99.8) 06/12/18 15:15 MCH 33.9 pg (27.9-34.1) 06/12/18 15:15 MCHC 34.0 g/dL (32.4-36.7) 06/12/18 15:15 RDW 14.7 % (11.5-15.2) 06/12/18 15:15 Plt Count 216 10^3/uL (150-400) 06/12/18 15:15 MPV 10.0 fL (8.7-11.7) 06/12/18 15:15 Neut % (Auto) 72.2 % (39.3-74.2) 06/12/18 15:15 Lymph % (Auto) 14.5 % (15.0-45.0) L 06/12/18 15:15 [place] % (Auto) 10.9 % (4.5-13.0) 06/12/18 15:15 Eos % (Auto) 1.0 % (0.6-7.6) 06/12/18 15:15 Baso % (Auto) 0.8 % (0.3-1.7) 06/12/18 15:15 Nucleat RBC Rel Count 0.0 % (0.0-0.2) 06/12/18 15:15 Absolute Neuts (auto) 5.57 10^3/uL (1.70-6.50) 06/12/18 15:15 Absolute Lymphs (auto) 1.12 10^3/uL (1.00-3.00) 06/12/18 15:15 Absolute Monos (auto) 0.84 10^3/uL (0.30-0.80) H 06/12/18 15:15 Absolute Eos (auto) 0.08 10^3/uL (0.03-0.40) 06/12/18 15:15 Absolute Basos (auto) 0.06 10^3/uL (0.02-0.10) 06/12/18 15:15 Absolute Nucleated RBC 0.00 10^3/uL (0-0.01) 06/12/18 15:15 Immature Gran % 0.6 % (0.0-1.1) 06/12/18 15:15 Immature Gran # 0.05 10^3/uL (0.00-0.10) 06/12/18 15:15 Sodium 136 mEq/L (135-145) 06/12/18 16:21 Potassium 3.2 mEq/L (3.5-5.2) L 06/12/18 16:21 Chloride 101 mEq/L (97-110) 06/12/18 16:21 Carbon Dioxide 24 mEq/l (22-31) 06/12/18 16:21 Anion Gap 11 mEq/L (6-14) 06/12/18 16:21 BUN 5 mg/dL (7-23) L 06/12/18 16:21 Creatinine 0.7 mg/dL (0.7-1.3) 06/12/18 16:21 Estimated GFR > 60 06/12/18 16:21 Glucose 105 mg/dL (70-100) H 06/12/18 16:21 Calcium 8.7 mg/dL (8.5-10.4) 06/12/18 16:21 Magnesium 1.0 mg/dL (1.6-2.3) L 06/12/18 18:27 Total Bilirubin 1.5 mg/dL (0.1-1.4) H 06/12/18 16:21 Conjugated Bilirubin 1.1 mg/dL (0.0-0.5) H 06/12/18 16:21 Unconjugated Bilirubin 0.4 mg/dL (0.0-1.1) 06/12/18 16:21 AST 91 IU/L (17-59) H 06/12/18 16:21 ALT 49 IU/L (21-72) 06/12/18 16:21 Alkaline Phosphatase 101 IU/L (38-126) 06/12/18 16:21 Total Protein 7.1 g/dL (6.3-8.2) 06/12/18 16:21 Albumin 4.1 g/dL (3.5-5.0) 06/12/18 16:21 Lipase 43 IU/L (23-300) 06/12/18 16:21 Stool Occult Bld Scrn POSITIVE (NEGATIVE) H 06/12/18 16:25 Assessment & Plan Assessment: Blood loss anemia (Acute) GI bleed (Acute) Nausea & vomiting (Acute) Volume depletion (Acute) 42 yo with longstanding hx of etoh abuse presenting with persistent n/v, new onset anemia and GI bleed as well as gait instability and FTT # GI bleed: patient presenting with melena and new onset anemia, in the setting of persistent n/v and difficulty tolerating PO. GI consulted and plans for EGD in am, NPO after midnight, IV PPI # acute blood loss anemia: hct dropped from 42 to 33 recently in the setting of ongoing melena as above, will trend and GI to see in am # etoh abuse and withdrawal: has been slightly greater than 24 hours since last drink and patient with mild withdrawal so far but hx of severe withdrawal and withdrawal seizures, started on ciwa, started on wernicke's protocol given next # gait instability: concerning for Wernicke's and have started patient on high dose thiamine for now, did not assess his gait as he was concerned he would fall , will ask pt/ot to be involved # FTT: with gait instability, inability to perform ADLs, not eating x 5 days-- due to ongoing heavy etoh abuse as above but patient rather debilitated at this point and will need to determine if he is safe to go home. Does have a sister very involved in his care. # alcoholic hepatitis: relatively mild at this time, will trend LFTs, no indication for steroids currently # hypokalemia/hypomagnesemia: will replete, electrolyte protocol, high risk for refeeding syndrome, monitor k/mg/phos daily # IP status, will require > 48 hours stay for eval/mgmt of above, high risk for severe withdrawal Patient new to my care. Old records reviewed and summarized as above. Care plan reviewed with ER doctor and further hx obtained from patients sister present at bedside.
[2018-06-12] MEDS ORDERED: PROTOCOL K PHOSPHATE 1 DOSE IV PRN (22:17)
[2018-06-12] MEDS ORDERED: PROTOCOL MAGNESIUM 1 DOSE IV PRN (22:17)
[2018-06-12] MEDS ORDERED: PROTOCOL CALCIUM 1 DOSE IV PRN (22:17)
[2018-06-12] MEDS ORDERED: PROTOCOL POTASSIUM 1 DOSE MISC PRN (22:17)
[2018-06-12] MEDS: THIAMINE HCL 500 MG in NS 100 ML IV SCH (22:23)
[2018-06-13] MEDS ORDERED: POTASSIUM CL 10 MEQ TAB PO ONE ×2 (00:24→08:32)
[2018-06-13] MEDS ORDERED: CALCIUM GLUCONATE 1 GM in D5W 50 ML IV ONE ×2 (00:45→09:00)
[2018-06-13] MEDS: PANTOPRAZOLE SODIUM 40 MG VIAL IVP SCH ×3 (00:52→13:58)
[2018-06-13 06:24] LABS: PLATELET COUNT 238 10^3/uL (150-400)
[2018-06-13] MEDS: THIAMINE HCL 500 MG in NS 100 ML IV SCH ×2 (06:27→13:59)
[2018-06-13] MEDS ORDERED: MAGNESIUM SULF 1 GM/DEXTROSE 100 ML IV ONE ×2 (08:33)
[2018-06-13] MEDS ORDERED: CALCIUM GLUCONATE 50 ML IV ONE (08:33)
[2018-06-13] MEDS ORDERED: FOLIC ACID 1 MG TAB PO SCH (09:00)
[2018-06-13] MEDS ORDERED: MULTIVITAMINS 1 EACH TAB PO SCH (09:00)
[2018-06-13] MEDS ORDERED: LR 1,000 ML IV ONE (10:24)
--- NOTE | 2018-06-13 10:40 | PDANEPAE ---
ANE Past Medical History - Cardiovascular History Hx Hypertension: Yes - Pulmonary History Hx Oxygen in Use at Home: No Hx Sleep Apnea: No Sleep Apnea Screening Result - Last Documented: Positive - Endocrine History Hx Diabetes: No - Chronic Pain History Chronic Pain: No ANE Review of Systems Review of Systems: ANE Patient History - Allergies Allergies/Adverse Reactions: No Known Allergies Allergy (Verified 06/12/18 14:15) - Home Medications Home Medications: Herbals/Supplements -Info Only 1 ea PO DAILY 06/12/18 [Last Taken Unknown] Ondansetron Odt [Zofran Odt 4 mg (*)] 4 mg PO Q8 PRN 06/12/18 [Last Taken ] - NPO status NPO Since - Liquids (Date): 06/13/18 NPO Since - Liquids (Time): 23:55 NPO Since - Solids (Date): 06/12/18 NPO Since - Solids (Time): 23:55 - Smoking Hx Smoking Status: Current some day smoker Marijuana use: Yes - Alcohol Use Alcohol Use: Heavy ANE Labs/Vital Signs - Labs Result Diagrams: 06/13/18 06:10 06/13/18 06:10 - Vital Signs Blood Pressure: 150/107 Heart Rate: 76 Respiratory Rate: 16 O2 Sat (%): 92 Height: 177.8 cm Weight: 95.254 kg ANE Physical Exam - Airway Mallampati Score: Class 2 - ASA Status ASA Status: II ANE Anesthesia Plan Total IV Anesthesia: Yes
[2018-06-13] MEDS ORDERED: PROPOFOL/EMULSION 500 MG/50 ML BOTTLE IV ONE (10:43)
--- NOTE | 2018-06-13 10:58 | SUROPNOTE ---
LIN[facility] Operative Report - Surgery BRIEF EGD NOTE Indication: melena, anemia Complications: none acutely Medication: per anesthesia Findings: 1. nl esophagus 2. moderate gastritis - bx'd 3. normal duodenum Impression/Recs 1. Melena - H/H correcting without intervention - EGD without clear bleeding findings - recommend continued observation - no plans for additional GI w/u unless bleeding clues persist or worsen - if has additional melena and H/H drop would need to consider colonoscopy. will defer this for now. - ok to advance diet - recommend PPI PO QD x 12 weeks, given underlying gastritis and hx of GERD/ dyspepsia - will sign off, call with questions
--- NOTE | 2018-06-13 10:59 | PDMN ---
Medical Necessity Medical necessity: [facility] [place] Sub[place] Related D/O, 2 days: 42 yo w/ hx etoh abuse w/ prior severe w/d including seizures c/o n/v and dark stools. Assessment reveals GI bleed w/ melena and new onset acute blood loss anemia. GI consult. CIWA protocol started for w/d. Gait instability noted and is concerning for Wernicke's. With gait instability, inability to perform ADLs, and not eating x 5 days--due to ongoing heavy etoh abuse pt debilitated at this point and will need to determine if he is safe to go home. IP status, will require > 48 hours stay for eval/mgmt of above, high risk for severe withdrawal.
--- NOTE | 2018-06-13 11:02 | GIREPORT ---
[facility] Surgical Services - Endoscopy Department Patient Name: Nathaniel Coronel Procedure Date: 06/13/2018 10:26 AM Patient Type: Inpatient Attending MD/ ER Physician: Nila Pedersen MD Procedure: Upper GI endoscopy Indications: Acute post hemorrhagic anemia, Heartburn, Melena Providers: Nila Pedersen MD Medicines: See the Anesthesia note for documentation of the administered medicatio ns Complications: No immediate complications. Description of Procedure: After obtaining informed consent, the endoscope was passed under direct vision. Throughout the procedure, the patient's blood pressure, pulse, and oxygen saturations were monitored continuously. The Endoscope was intro duced through the mouth, and advanced to the second part of duodenum. The [facility] er GI endoscopy was accomplished without difficulty. The patient tolerated th e procedure well. Findings: The examined esophagus was normal. Diffuse mild inflammation characterized by congestion (edema) and eryth dev was found in the stomach. Biopsies were taken with a cold forceps for histology. The examined duodenum was normal. Estimated Blood Loss: Estimated blood loss: none. Post Op Diagnosis: - Normal esophagus. - Gastritis. Biopsied. - Normal examined duodenum. Recommendation: - Return patient to [facility] for ongoing care. - Resume regular diet. - Use a proton pump inhibitor PO daily for 12 weeks. - No source of blood loss noted. Attending Participation: I personally performed the entire procedure. Nila Pedersen MD Nila Pedersen MD 06/13/2018 11:01:34 AM This report has been signed electronicallyDaus MD Slava Number of Addenda: 0 Note Initiated On: 06/13/2018 10:26 AM [email or web address]
[2018-06-13] MEDS ORDERED: fentaNYL 100 MCG/2 ML INJ IVP PRN (11:08)
[2018-06-13] MEDS ORDERED: NALOXONE HCL 0.4 MG/ML INJ IVP PRN (11:08)
[2018-06-13] MEDS ORDERED: ONDANSETRON 4 MG/2 ML VIAL IVP PRN (11:08)
[2018-06-13] MEDS ORDERED: LR 500 ML IV PRN (11:08)
--- NOTE | 2018-06-13 11:09 | POSTANESTH ---
Post Anesthetic Evaluation Cardiovascular Status: Normal, Stable Respiratory Status: Normal, Stable Level of Consciousness/Mental Status: Can Participate in Eval Pain Control: Adequate, Prn Tx Ordered Nausea/Vomiting Control: Adequate, Prn Tx Ordered Complications Possibly Related to Anesthesia: None Noted
--- NOTE | 2018-06-13 11:28 | GCON ---
INPATIENT CONSULTATION NOTE REFERRING PHYSICIAN: Jean Aponte MD REASON FOR CONSULTATION: Dark stools and anemia. HISTORY OF PRESENT ILLNESS: Briefly, the patient is a 42-year-old male with a long-standing history of alcohol abuse, who presented to the emergency room with complaints of nausea and vomiting associat ed with some dark stools over the last several days. He describes having a difficult time eating ove r the last many days. When he eats, he will feel nausea. He typically drinks approximately half a h andle of vodka per day. His last drink was the day prior to admission. He stopped drinking because he felt ill. He has not had any prior history of GI bleeding to his knowledge. He denies history of ulcer or heartburn. He does admit to frequent indigestion, particularly when drinking alcohol. He denies fevers, chills, or sweats. He has had no shortness of breath. Since being in the hospital, timothy paredes has had less nausea. He is feeling somewhat hungry. He has had no further dark stools since being in the hospital. ALLERGIES: None. MEDICATIONS: Outpatient medicines are herbal therapies, as-needed Zofran, and he is prescribed antih ypertensive medicine from the [facility], which he is not taking. PAST MEDICAL HISTORY: Includes PTSD and hypertension, as well as alcohol abuse. PAST SURGICAL HISTORY: Includes appendectomy. FAMILY HISTORY: Reports other members of his family have a history of alcoholism. SOCIAL HISTORY: He does not smoke. He drinks alcohol heavily. He uses marijuana daily. REVIEW OF SYSTEMS: A complete 10-point review was undertaken with the patient, is negative, except f or those details described in the History of Present Illness. PHYSICAL EXAM: GENERAL: This is a well-developed male, in no apparent distress. HEENT: His pupils are equal, round, reactive to light and accommodation. His sclerae are nonicteric. His oropharynx is clear. NECK: Supple, without lymphadenopathy. HEART: Regular, without murmur. ABDOMEN: Soft, nontender, with normoactive bowel sounds. EXTREMITIES: Free of cyanosis, clubbing, and edema. JOSE RO: Grossly nonfocal. PSYCHIATRIC: He is reacting and interactive appropriately. SKIN: Warm and d ry, without lesions. LABORATORY TESTING: White count of 7.72, hemoglobin of 11.3, hematocrit of 33.2. This represents a departure from his normal baseline hematocrits, which are in the 40s. Sodium of 139, potassium of 3. 7, chloride of 108, bicarb of 23, BUN of 3, creatinine of 0.7, total bilirubin 1.5, conjugated of 1.1 , AST of 91, ALT of 49, alkaline phosphatase of 101, albumin of 4.1, lipase of 43. IMPRESSION/RECOMMENDATIONS: The patient was admitted to the hospital with nausea, vomiting, and abdo jimmy pain. This is associated with dark stools and a drop in his hematocrit. Luckily, overnight, timothy paredes is starting to feel somewhat better, and is anxious to try to eat again. The differential for his symptoms includes upper gastrointestinal bleeding. At this time, I recommend he remain n.p.o., on IV proton pump inhibitor, and we will plan upper endoscopy. Pending the results of his upper endoscopy , we can monitor his clinical status. If his upper endoscopy is negative, and he continues to have s ymptoms, we could contemplate colonoscopy. I think this is a low yield workup, however. /[id number]/MODL
[2018-06-13 11:34] VITALS: BP 142/95
--- NOTE | 2018-06-13 13:45 | PDDCSUM ---
Discharge Summary Discharge Summary: Date of Admission: 06/12/2018 Date of Discharge: 06/13/2018 Consults: GI Procedures: EGD Followup: PCP Hospital Course Problem List: 42 yo with longstanding hx of ETOH abuse presenting with persistent n/v, new onset anemia and GI bleed as well as gait instability and FTT # GI bleed: patient presenting with melena and new onset anemia, in the setting of persistent n/v and difficulty tolerating PO. GI consulted, s/p EGD this AM showing gastritis, switching IV PPI to PO Pantoprazole 40 mg qd for 12 weeks per GI # acute blood loss anemia: hct dropped from 42 to 33 recently in the setting of ongoing melena as above, returned to baseline this AM # etoh abuse and withdrawal: has been slightly greater than 24 hours since last drink and patient with mild withdrawal so far but hx of severe withdrawal and withdrawal seizures, started on ciwa, started on wernicke's protocol given next , continue MV at home # gait instability: concerning for Wernicke's and have started patient on high dose thiamine for now # FTT: with gait instability, inability to perform ADLs, not eating x 5 days-- due to ongoing heavy etoh abuse as above but patient rather debilitated at this point and will need to determine if he is safe to go home. Does have a sister very involved in his care. # alcoholic hepatitis: relatively mild at this time, trended LFTs, no indication for steroids currently # hypokalemia/hypomagnesemia: repleted, electrolyte protocol, high risk for refeeding syndrome, monitored k/mg/phos Time spent on discharge was >35 minutes with >50% of time spent on patient education and counseling.
--- NOTE | 2018-06-13 13:59 | ASMTCAGE ---
CAGE Do you feel you ought to Answers: No cut down on your drinking or drug use? Do people annoy you by Answers: No criticizing your drinking or drug use? Do you feel guilty about Answers: No your drinking or drug use? Do you drink or use drugs Answers: Yes first thing in the morning (Eye Sole Trimmer)? Date Signed: 06/13/2018 01:59 PM Electronically Signed By:SOO Lucia
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
--- NOTE | 2018-06-13 14:32 | ASMTCMCOM ---
CM Note CM Note Notes: Pt is a 42 y/o man admitted for a gi bleed. Pt had an EGD today. Pt has a hx of heavy etoh consumption. Pt reports that he is not interested in working w/ therapies here at the hospital. Pt reports that he is able to get around independently. CAGE completed. CM scheduled him a follow up for a home visit. Pt reports that he does not want anyone coming to his house. CM cancelled that appointment and rescheduled both appointments for a later time per his request. Pt is not interested in stopping his etoh. No other needs at this time. CM available for changes. Plan: Independent Date Signed: 06/13/2018 02:31 PM Electronically Signed By:SOO Lucia
[2018-06-13] MEDS ORDERED: PNEUMOCOCCAL 0.5ML VACCINE VIAL (PNEUMOVAX 23) IM ONE (15:35)
[2018-06-13] MEDS ORDERED: PANTOPRAZOLE SODIUM 40 MG TAB PO SCH (21:00)
[2018-06-14] MEDS ORDERED: PANTOPRAZOLE SODIUM 40 MG TAB PO SCH (09:00)
== END 2018-06-13 16:49 | disposition home or self-care (01) | DRG 241 ==
LOC: OBSVTOIN 17:46 → F2W 17:58
PROVIDERS: ADMIT Internal Medicine; ATTEND Internal Medicine
PROC: 0DB68ZX Excision of Stomach, Via Natural or Artificial Opening Endoscopic, Diagnostic (ICD-10-PCS; principal; 2018-06-13 11:15)
DX: K29.71 Gastritis, unspecified, with bleeding (principal); D62 Acute posthemorrhagic anemia; K70.10 Alcoholic hepatitis without ascites; F10.239 Alcohol dependence with withdrawal, unspecified; R26.81 Unsteadiness on feet; R62.7 Adult failure to thrive; E87.6 Hypokalemia; E83.42 Hypomagnesemia; I10 Essential (primary) hypertension; F43.10 Post-traumatic stress disorder, unspecified; F12.90 Cannabis use, unspecified, uncomplicated; Z23 Encounter for immunization
CPT/HCPCS: 96374; 97165-GO; G0009; J0610; J1630; J2060; J2405; J2550; J2704; J2780; J3411; J3475

== ENCOUNTER 2018-06-30 01:45 | Observation (INO) | payer MEDICAID ==
[2018-06-30] MEDS ORDERED: NS 1,000 ML IV ONE ×2 (01:54→02:36)
[2018-06-30 02:07] LABS: PLATELET COUNT 398 10^3/uL (150-400)
[2018-06-30] MEDS ORDERED: PROMETHAZINE HCL 25 MG/ML INJ IVP ONE (02:08)
--- NOTE | 2018-06-30 02:13 | EDPHY ---
H & P Stated Complaint: abd pain, bloody stool Time Seen by Provider: 06/30/18 01:52 HPI/ROS: Chief Complaint: Abdominal pain, blood in stool HPI: 42-year-old male with a history of chronic alcohol abuse is presenting this morning complaining of upper abdominal pain and blood in his stool. Patient has been having intermittent bloody stools for the past 4 weeks. He was admitted to this hospital the beginning of this month and had upper endoscopy showing gastritis. He was started on Protonix orally at that time. The patient at was also noted to have an unstable gait and exhibited symptoms consistent with [place] cephalitis. He was noted to have significant evidence of failure to thrive secondary to his chronic alcohol abuse. He says he is continuing to drink alcohol though he has shifted from vodka mostly to beer in an attempt to wean himself. He has had several episodes of bright red blood per rectum today. He has also vomited several times. No blood in his emesis. He is complaining of epigastric abdominal pain going into his chest. He has not been compliant with his hypertensive or gastritis medications. The discharge summary notes that his sister was involved with his care. Patient states that his sister is no longer involved. He is stating that they simply have had a falling out is not providing any further information. Patient is very slow to answer in seems very confused by my questions about whether he is vomiting. He is somewhat disorganized. ROS: 10 systems were reviewed and were negative except those elements noted in the HPI. PMH: Chronic alcohol abuse, alcoholic gastritis, anemia, failure to thrive, encephalopathy Social History: No smoking, daily heavy alcohol, occasional marijuana Family History: non-contributory Physical Exam: Gen: Awake, Alert, No Distress, tachycardic, mildly tremulous HEENT: Nose: no rhinorrhea Eyes: PERRLA, EOMI Mouth: Moist mucosa Neck: Supple, no JVD Chest: nontender, lungs clear to auscultation Heart: S1, S2 normal, no murmur Abd: Soft, mild epigastric tenderness, no guarding Back: no CVA tenderness, no midline tenderness Ext: no edema, non-tender Skin: no rash Neuro: CN II-XII intact, Sensation grossly intact, Strength 5/5 in bilateral upper and lower extremities - Personal History Current Tetanus Diphtheria and Acellular Pertussis (TDAP): Unsure Tetanus Vaccine Date: 2000 - Medical/Surgical History Hx Asthma: No Hx Chronic Respiratory Disease: No Hx Diabetes: No Hx Cardiac Disease: No Hx Renal Disease: No Hx Cirrhosis: No Hx Alcoholism: Yes Hx HIV/AIDS: No Hx Splenectomy or Spleen Trauma: No Other PMH: PTSD, HTN-doesnt take meds, ETOH abuse,marijuana use, ruptured appendix, ETOH W/D SEIZURES, DT'S - Social History Smoking Status: Never smoked Constitutional: Initial Vital Signs Temperature (C) 37.2 C 06/30/18 01:51 Heart Rate 135 H 06/30/18 01:51 Respiratory Rate 16 06/30/18 01:51 Blood Pressure 151/105 H 06/30/18 01:51 O2 Sat (%) 95 06/30/18 01:51 O2 Delivery Mode Room Air Allergies/Adverse Reactions: No Known Allergies Allergy (Verified 06/12/18 14:15) Home Medications: Medication Instructions Recorded Herbals/Supplements -Info Only 1 ea PO DAILY 06/12/18 Ondansetron Odt [Zofran Odt 4 mg 4 mg PO Q8 PRN 06/12/18 (*)] Multivitamins [Multivitamin (*)] 1 each PO DAILY tab 06/13/18 Pantoprazole Sodium [Protonix 40mg 40 mg PO DAILY #90 tab 06/13/18 (*)] Lisinopril 06/30/18 Medical Decision Making ED Course/Re-evaluation: Patient has had a moderate bloody stool here. IV is been placed. Will give him IV fluids. Will start him on a CIWA protocol. He is currently tachycardic and dehydrated as well. Mildly hypertensive. Noncompliant with medications. Laboratory evaluations noted. Patient has a mild anemia which is not dramatically worsen from his prior visit. He is acidotic and has evidence of acute kidney injury likely secondary to dehydration. INR is 1.37. He has had bloody stool here. He remains tachycardic likely secondary to both dehydration and alcohol withdrawal. He is disheveled and clearly not able to care for self adequately. I have ordered IV fluids. Start him on a CIWA protocol. He will require continued hydration here. His anemia is not acute.. Will discussed with the hospitalist for admission. - Data Points Laboratory Results: Laboratory Results 06/30/18 01:55 06/30/18 01:55 06/30/18 06/30/18 06/30/18 01:55 01:55 01:55 WBC 16.11 10^3/uL H 10^3/uL (3.80-9.50) RBC 3.92 10^6/uL L 10^6/uL (4.40-6.38) Hgb 12.8 g/dL L g/dL (13.7-17.5) Hct 35.0 % L % (40.0-51.0) MCV 89.3 fL fL (81.5-99.8) MCH 32.7 pg pg (27.9-34.1) MCHC 36.6 g/dL g/dL (32.4-36.7) RDW 12.8 % % (11.5-15.2) Plt Count 398 10^3/uL 10^3/uL (150-400) MPV 10.0 fL fL (8.7-11.7) Neut % (Auto) Pending Lymph % (Auto) Pending [place] % (Auto) Pending Eos % (Auto) Pending Baso % (Auto) Pending Nucleat RBC Rel Count Pending Absolute Neuts (auto) Pending Absolute Lymphs (auto) Pending Absolute Monos (auto) Pending Absolute Eos (auto) Pending Absolute Basos (auto) Pending Absolute Nucleated RBC Pending Immature Gran % Pending Immature Gran # Pending Platelet Estimate Pending PT 17.0 SEC H SEC (12.0-15.0) INR 1.37 H (0.83-1.16) APTT 31.0 SEC SEC (23.0-38.0) Sodium 129 mEq/L L mEq/L (135-145) Potassium 2.9 mEq/L L mEq/L (3.5-5.2) Chloride 96 mEq/L L mEq/L (97-110) Carbon Dioxide 15 mEq/l L mEq/l (22-31) Anion Gap 18 mEq/L H mEq/L (6-14) BUN 42 mg/dL H mg/dL (7-23) Creatinine 1.8 mg/dL H mg/dL (0.7-1.3) Estimated GFR 42 Glucose 189 mg/dL H mg/dL (70-100) Calcium 8.1 mg/dL L mg/dL (8.5-10.4) Total Bilirubin 0.8 mg/dL mg/dL (0.1-1.4) AST 65 IU/L H IU/L (17-59) ALT 42 IU/L IU/L (21-72) Alkaline Phosphatase 104 IU/L IU/L (38-126) Total Protein 6.9 g/dL g/dL (6.3-8.2) Albumin 3.7 g/dL g/dL (3.5-5.0) Lipase 64 IU/L IU/L (23-300) Ethyl Alcohol < 10 mg/dL mg/dL (0-10) Medications Given: Discontinued Medications Sodium Chloride (Ns) 1,000 mls @ 0 mls/hr IV ONCE ONE; Wide Open PRN Reason: Protocol Stop: 06/30/18 01:55 Last Admin: 06/30/18 02:05 Dose: 1,000 mls Promethazine HCl (Phenergan) 12.5 mg IVP EDNOW ONE Stop: 06/30/18 02:09 Last Admin: 06/30/18 02:12 Dose: 12.5 mg Departure - Departure Disposition: [facility] Inpatient Acute Clinical Impression: GI bleed, Nausea & vomiting, Alcohol withdrawal, Dehydration Condition: Serious Referrals: NONE *PRIMARY CARE P,. [Primary Care Provider] - As per Instructions
[2018-06-30 02:16] LABS: INR 1.37 (0.83-1.16)
[2018-06-30] MEDS ORDERED: ONDANSETRON 4 MG/2 ML VIAL IVP PRN (02:26)
[2018-06-30] MEDS ORDERED: ACETAMINOPHEN 325 MG TAB PO PRN (02:26)
[2018-06-30] MEDS ORDERED: ONDANSETRON DISINTEGRATING 4 MG TAB PO PRN (02:26)
[2018-06-30] MEDS ORDERED: FLUMAZENIL 0.5 MG/5 ML MDV IVP PRN (02:29)
[2018-06-30] MEDS ORDERED: LORazepam 2 MG/ML INJ IVP PRN (02:29)
[2018-06-30] MEDS: PANTOPRAZOLE SODIUM 40 MG VIAL IVP SCH ×2 (03:01→09:01)
--- NOTE | 2018-06-30 03:08 | PDGENHP ---
History and Physical - Chief Complaint Hematochezia - History of Present Illness 42 yo M w/ hx of ETOH use d/o presents with bright red blood per rectum. The patient was recently admitted here for management of the same. During that admission he underwent an EGD that demonstrated only gastritis. He was discharged home on PPI. He has been home for about two weeks. He started drinking shortly after returning home but has switched to beer from vodka. He used to drink about a liter of vodka per day, he has now been drinking about 6 beers daily. For about the last week he has been having blood in his stool. He came in today because he could tell he was becoming dehydrated and his heart was racing. At the time of my evaluation he is fairly comfortable without clear signs of withdrawal. Case discussed with ED physician Dr. Jean; records reviewed and summarized above. History Information - Allergies/Home Medication List Allergies/Adverse Reactions: No Known Allergies Allergy (Verified 06/12/18 14:15) Home Medications: Herbals/Supplements -Info Only 1 ea PO DAILY 06/12/18 [Last Taken Unknown] Ondansetron Odt [Zofran Odt 4 mg (*)] 4 mg PO Q8 PRN 06/12/18 [Last Taken ] Lisinopril 06/30/18 [Last Taken Unknown] I have personally reviewed and updated: family history, medical history - Past Medical History hypertension, psychiatric history (PTSD) Additional medical history: alcohol abuse and withdrawal - Surgical History Reports: appendectomy - Family History Additional family history: alcoholism - Social History Smoking Status: Never smoked Review of Systems Review of Systems: ROS: 10pt was reviewed & negative except for what was stated in HPI & below Physical Exam Physical Exam: Temp Pulse Resp BP Pulse Ox 37.2 C 111 H 20 123/100 H 95 06/30/18 01:51 06/30/18 02:20 06/30/18 02:20 06/30/18 02:20 06/30/18 02:20 Constitutional: obese, uncomfortable Eyes: PERRL, EOMI Ears, Nose, Mouth, Throat: moist mucous membranes, no oral mucosal ulcers Cardiovascular: no murmur, rub, or gallop, tachycardia Respiratory: no respiratory distress, clear to auscultation Gastrointestinal: normoactive bowel sounds, soft, non-tender abdomen Skin: warm, normal color Musculoskeletal: full muscle strength, no muscle tenderness Neurologic: CN II-XII Intact Psychiatric: interacting appropriately, anxious Lab Data & Imaging Review 06/30/18 01:55 06/30/18 01:55 WBC 16.11 10^3/uL (3.80-9.50) H 06/30/18 01:55 RBC 3.92 10^6/uL (4.40-6.38) L 06/30/18 01:55 Hgb 12.8 g/dL (13.7-17.5) L 06/30/18 01:55 Hct 35.0 % (40.0-51.0) L 06/30/18 01:55 MCV 89.3 fL (81.5-99.8) 06/30/18 01:55 MCH 32.7 pg (27.9-34.1) 06/30/18 01:55 MCHC 36.6 g/dL (32.4-36.7) 06/30/18 01:55 RDW 12.8 % (11.5-15.2) 06/30/18 01:55 Plt Count 398 10^3/uL (150-400) 06/30/18 01:55 MPV 10.0 fL (8.7-11.7) 06/30/18 01:55 Neut % (Auto) 74.6 % (39.3-74.2) H 06/30/18 01:55 Lymph % (Auto) 12.4 % (15.0-45.0) L 06/30/18 01:55 [place] % (Auto) 11.7 % (4.5-13.0) 06/30/18 01:55 Eos % (Auto) 0.1 % (0.6-7.6) L 06/30/18 01:55 Baso % (Auto) 0.5 % (0.3-1.7) 06/30/18 01:55 Nucleat RBC Rel Count 0.0 % (0.0-0.2) 06/30/18 01:55 Absolute Neuts (auto) 12.02 10^3/uL (1.70-6.50) H 06/30/18 01:55 Absolute Lymphs (auto) 2.00 10^3/uL (1.00-3.00) 06/30/18 01:55 Absolute Monos (auto) 1.88 10^3/uL (0.30-0.80) H 06/30/18 01:55 Absolute Eos (auto) 0.02 10^3/uL (0.03-0.40) L 06/30/18 01:55 Absolute Basos (auto) 0.08 10^3/uL (0.02-0.10) 06/30/18 01:55 Absolute Nucleated RBC 0.00 10^3/uL (0-0.01) 06/30/18 01:55 Immature Gran % 0.7 % (0.0-1.1) 06/30/18 01:55 Immature Gran # 0.11 10^3/uL (0.00-0.10) H 06/30/18 01:55 RBC/WBC/PLT Morphology TNP 06/30/18 01:55 Platelet Estimate TNP 06/30/18 01:55 PT 17.0 SEC (12.0-15.0) H 06/30/18 01:55 INR 1.37 (0.83-1.16) H 06/30/18 01:55 APTT 31.0 SEC (23.0-38.0) 06/30/18 01:55 Sodium 129 mEq/L (135-145) L 06/30/18 01:55 Potassium 2.9 mEq/L (3.5-5.2) L 06/30/18 01:55 Chloride 96 mEq/L (97-110) L 06/30/18 01:55 Carbon Dioxide 15 mEq/l (22-31) L 06/30/18 01:55 Anion Gap 18 mEq/L (6-14) H 06/30/18 01:55 BUN 42 mg/dL (7-23) H 06/30/18 01:55 Creatinine 1.8 mg/dL (0.7-1.3) H 06/30/18 01:55 Estimated GFR 42 06/30/18 01:55 Glucose 189 mg/dL (70-100) H 06/30/18 01:55 Calcium 8.1 mg/dL (8.5-10.4) L 06/30/18 01:55 Total Bilirubin 0.8 mg/dL (0.1-1.4) 06/30/18 01:55 AST 65 IU/L (17-59) H 06/30/18 01:55 ALT 42 IU/L (21-72) 06/30/18 01:55 Alkaline Phosphatase 104 IU/L (38-126) 06/30/18 01:55 Total Protein 6.9 g/dL (6.3-8.2) 06/30/18 01:55 Albumin 3.7 g/dL (3.5-5.0) 06/30/18 01:55 Lipase 64 IU/L (23-300) 06/30/18 01:55 Ethyl Alcohol < 10 mg/dL (0-10) 06/30/18 01:55 Assessment & Plan Assessment: 42 yo M w/ hx of ETOH use disorder presents with hematochezia. Plan: 1. Hematochezia - Recurrent issue; EGD performed during recent admission revealed only gastritis. He has not had a colonoscopy and continues to drink heavy ETOH. He is tachycardic on admission but with normal blood pressures; Hgb mildly decreased from discharge. - Monitor CBC - PPI IV BID - Continue IVF - Will need GI consult in the morning 2. ETOH use d/o - At high risk for withdrawal; he has been drinking >6 beers daily since last discharge. - CIWA protocol placed - Daily MVI, folate, thiamine 3. Tachycardia - Likely multifactorial from GIB and ETOH w/d. - Continue IVF - CIWA 4. ОЛЬГА - Suspect 2/2 dehydration. - Repeat BMP after IVF 5. Hyponatremia - Likely due to dehydration. - Repeat BMP after IVF 6. ABLA - Hgb 12.8, mildly decreased from discharge. - Acute management as above 7. Hypokalemia - Replete PRN. 8. AGMA - Multifactorial from ОЛЬГА, alcohol, and likely lactic acidosis. - IVF Diet - NPO, mIVF Code - Full Ppx - SCDs Dispo - Admit under observation status
[2018-06-30] MEDS ORDERED: POTASSIUM CL 20 MEQ TAB PO ONE (03:13)
[2018-06-30] MEDS ORDERED: PROMETHAZINE HCL 25 MG/ML INJ IVP PRN (03:52)
[2018-06-30] MEDS: NS 1,000 ML IV SCH ×2 (03:55→08:58)
[2018-06-30 05:48] LABS: PLATELET COUNT 314 10^3/uL (150-400)
[2018-06-30] MEDS ORDERED: PROTOCOL POTASSIUM 1 DOSE MISC PRN ×2 (06:13)
[2018-06-30] MEDS ORDERED: PROTOCOL MAGNESIUM 1 DOSE IV PRN (06:13)
[2018-06-30] MEDS ORDERED: POTASSIUM CL 10 MEQ TAB PO ONE (06:21)
[2018-06-30] MEDS ORDERED: THIAMINE HCL 100 MG TAB PO SCH (09:00)
[2018-06-30] MEDS ORDERED: FOLIC ACID 1 MG TAB PO SCH (09:00)
[2018-06-30] MEDS ORDERED: MULTIVITAMINS 1 EACH TAB PO SCH (09:00)
[2018-06-30 11:33] VITALS: BP 131/83
--- NOTE | 2018-06-30 11:39 | PDDCSUM ---
Discharge Summary Discharge Summary: Date of Admission: 06/30/2018 Date of Discharge: 06/30/2018 Studies: none Discharge Diagnoses: 1. Acute blood loss anemia 2. Suspected GI bleed 3. Ongoing alcohol abuse 4. Acute kidney injury 5. Hypokalemia, hypomagnesemia 6. Hyponatremia 7. AGMA 2/2 alcohol, lactic acidosis 8. Mild coagulopathy Brief Hospital Course: 42 yo M w/ hx of ETOH use disorder presents with hematochezia. Was recently hospitalized 2 weeks ago for melena. Had EGD which showed gastritis. He went back to drinking alcohol and hasn't been taking PPI. Came back to ED due to abdominal pain and malena blood in his stools. He actually says he's had blood in stools for about 4 weeks. He was anemic with hematocrit going from 35 to 27 overnight (was 43 at discharge on 06/13). He had 2 bloody BMs while here. We recommended GI consultation for colonoscopy and possible repeat EGD however patient refused. He is adamant about leaving the hospital. He has no intention of quitting alcohol consumption at this time and does not want to go through alcohol withdrawal. He is of sound decision making capacity and is able to tell me risks of discharging against medical advice, including ongoing bleeding, shock, and possibly . He left AMA. Of note, he had several metabolic derangements likely related to his alcohol consumption and blood loss. His creatinine had improved from 1.8 to 1.5 with IVF (normal baseline). His serum K was still 3.0 and Na 130 at time of him leaving the hospital. Medications: Please refer to EMR. No prescriptions were given. Physical Exam: Vitals reviewed, intermittently tachycardic, BP normal. Alert and oriented, no tongue fasciculations or hand tremors, mild tachycardia without murmur, lungs clear, abdomen soft and nontender without hepatomegaly, no rashes or stigmata of chronic liver disease.
--- NOTE | 2018-06-30 12:24 | GCON ---
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 He was seen here a couple weeks ago wi th similar complaints and EGD showed only gastritis, but no ulcer disease. His blood alcohol level w as negative on arrival, but he did have multiple electrolyte abnormalities, as well as acute kidney i njury. He was treated aggressively with IV fluids, put on the CIWA protocol. He did not really requ yumiko much Ativan overnight, but he does have some tremor this morning. Dr. Davila spoke with the deb mayorga who said that he is not interested in a GI workup at this time despite recognizing the risks of . In any case, he was less cooperative for me and had no other additional complaints. REVIEW OF SYSTEMS: Otherwise negative. PAST MEDICAL HISTORY: Includes alcoholism, Wernicke encephalopathy, alcoholic seizures, alcohol with drawal in the past, anemia, PTSD, hypertension, a ruptured appendix in the past. PAST SURGICAL HISTORY: Includes appendectomy. SOCIAL HISTORY: He is a nonsmoker, but drinks as much of a fifth of vodka per day and has reportedly reduced it to beer. FAMILY HISTORY: Noncontributory at this time. MEDICATIONS: Currently include folate, CIWA protocol with Ativan, multivitamin, Zofran, Protonix, Ph energan, normal saline, and thiamine. PHYSICAL EXAM: VITAL SIGNS: He was afebrile. Blood pressure was 118/77, heart rate of 100, respira tions 24, oxygen saturation 97% on room air. GENERAL: He was awake and did not answer many question s with minor tremors. HEENT: Pupils equally round and reactive to light. Nonicteric and noninjecte d. Mucous membranes moist without erythema or exudate. NECK: Supple without adenopathy or jugular vein distention. RESPIRATORY: Breath sounds are clear to auscultation bilaterally without wheezes r ubs or rales. HEART: Regular rate and rhythm without murmurs, rubs, gallops. ABDOMEN: Soft, nonte nder, nondistended. EXTREMITIES: No clubbing, cyanosis, or edema. NEUROLOGIC: Nonfocal, including cranial nerves, deep tendon reflexes. SKIN: Warm, dry, without evidence of rash. OBJECTIVE DATA: Includes white count 11.2, this was 16 yesterday, hematocrit was 35 down 28, platele ts of 314. INR was 1.37 on admission. Sodium is 130, potassium 3.0, chloride 99, bicarb 21, BUN 43, creatinine 1.5, which was 1.8 yesterday, but was normal at 0.7 a couple of weeks ago. LFTs were mil dly elevated with an AST of 65, but normalized today, including bilirubin and alkaline phosphatase. Lipase was normal. Albumin 2.9. Alcohol negative. ASSESSMENT/PLAN: 1. Anemia and ongoing issues of gastritis and gastrointestinal bleeding. Since he just had an EGD a couple of weeks ago, it is probably not useful to re-examine that. His ongoing gastritis is likely related to ongoing alcohol abuse. He is getting acid suppression. Wonder if Carafate would be usefu l since he is refusing any further Gastroenterology consultation. 2. Alcoholism. This is a chronic problem for him. He has not required much Ativan and he may be le aving AMA, so I would hold off on that for now. Dr. Davila is about to go check with him again to try to clarify his intentions and see if he is interested in ongoing management. 3. Acute kidney injury, likely due to dehydration, which is probably diarrhea, amongst other issues. He is getting intravenous fluids now. His creatinine has come down, and he has adequate urine outp ut. 4. Electrolyte abnormalities likely due to poor dietary intake. He is improving well now with repla cement. Continue his intravenous fluids as long as he is willing and monitor his potassium, as well as sodium. /[id number]/MODL
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
== END 2018-06-30 12:58 | disposition left against medical advice (07) ==
LOC: EDUNIT# → F2N 03:41
PROVIDERS: ADMIT Student in an Organized Health Care Education/Training Program; ATTEND Internal Medicine
DX: D62 Acute posthemorrhagic anemia (principal); K29.21 Alcoholic gastritis with bleeding; F10.239 Alcohol dependence with withdrawal, unspecified; Y90.0 Blood alcohol level of less than 20 mg/100 ml; N17.9 Acute kidney failure, unspecified; E87.1 Hypo-osmolality and hyponatremia; E86.0 Dehydration; E87.6 Hypokalemia; D68.9 Coagulation defect, unspecified; Z91.14 Patient's other noncompliance with medication regimen
CPT/HCPCS: 96361; 96374; 96375; 96376; 99285; G0378; G0480; J2060; J2405; J2550

== ENCOUNTER 2018-07-08 22:39 | Emergency (ER) | payer MEDICAID ==
[2018-07-08] MEDS ORDERED: chlordiazePOXIDE 25 MG CAP ONE (23:38)
[2018-07-08] MEDS ORDERED: NS 1,000 ML IV ONE (23:38)
[2018-07-08] MEDS ORDERED: chlordiazePOXIDE 25 MG CAP PO ONE (23:39)
--- NOTE | 2018-07-08 23:43 | EDPHY ---
H & P Stated Complaint: detox from snorting dust off Source: Patient, Family, Old records Exam Limitations: No limitations - Personal History Current Tetanus Diphtheria and Acellular Pertussis (TDAP): Yes Tetanus Vaccine Date: 2000 - Medical/Surgical History Hx Asthma: No Hx Chronic Respiratory Disease: No Hx Diabetes: No Hx Cardiac Disease: No Hx Renal Disease: No Hx Cirrhosis: No Hx Alcoholism: Yes Hx HIV/AIDS: No Hx Splenectomy or Spleen Trauma: No Other PMH: PTSD, HTN-doesnt take meds, ETOH abuse,marijuana use, ruptured appendix, ETOH W/D SEIZURES, DT'S - Social History Smoking Status: Never smoked Time Seen by Provider: 07/08/18 23:06 HPI/ROS: HPI The patient presents with request to go to rehabilitation facility for help with substance abuse. The patient has a longstanding history of alcohol abuse, with last drink about 3 weeks ago. He was admitted to the hospital on June 30 but left AMA. At that time he had anemia and a GI bleed. He had not undergone endoscopy. He says that he has stopped drinking alcohol though has replace this with huffing dust off. He has been doing this nearly daily. Currently he feels somewhat dizzy and nauseated and anxious. He was drinking about a pt of hard alcohol a day. He currently denies any dark or bloody stools. He did have a fall, hitting his forehead on his desk 2 days ago. He does not believe he lost consciousness. His sister has recently become involved in his life, however the patient does not want to stay with her as she has many roommates. The patient is requesting to go to rehab for alcohol abuse. He denies any SI or HI. REVIEW OF SYSTEMS 10 systems were reviewed and negative with the exception of the elements mentioned in the history of present illness. PMHx: History of GI bleed with anemia, history of alcoholic gastritis Soc Hx: , currently on disability for PTSD, lives in an apartment, longstanding history of alcohol abuse PHYSICAL General Appearance: Alert, anxious Head: There is an abrasion to his left forehead Eyes: Pupils equal and round no pallor or injection ENT, Mouth: Mucous membranes moist, posterior pharynx is slightly edematous with mild erythema Respiratory: There are no retractions, lungs are clear to auscultation Cardiovascular: Regular rate and rhythm Gastrointestinal: Abdomen is soft and non-tender, no masses, bowel sounds normal Neurological: A&O, moves all extremities Skin: Warm and dry, no rashes Musculoskeletal: Neck is supple non tender Extremities: symmetrical, full range of motion Psychiatric: Patient is oriented X 3, there is no agitation (Riguzzi,Ester) Constitutional: Initial Vital Signs Temperature (C) 36.7 C 07/08/18 22:51 Heart Rate 105 H 07/08/18 22:51 Respiratory Rate 20 07/08/18 22:51 Blood Pressure 157/110 H 07/08/18 22:51 O2 Sat (%) 99 07/08/18 22:51 O2 Delivery Mode Room Air Allergies/Adverse Reactions: No Known Allergies Allergy (Verified 07/08/18 22:50) Home Medications: Medication Instructions Recorded Losartan Potassium [Cozaar 50 mg 50 mg PO DAILY 06/30/18 (*)] Lisinopril 07/08/18 Pantoprazole Sodium [Protonix] 07/08/18 Medical Decision Making - Diagnostics Imaging Results: Imaging Impressions Head CT 07/08/18 23:37 Impression: 1. No acute intracranial hemorrhage or calvarial fracture. 2. Subtle asymmetric right cerebellar hypodensity which is likely secondary to beam hardening artifact. With clinical concern for cerebellar pathology, further evaluation with MRI is recommended. A preliminary report was provided by [facility] at 12:10 AM. The final interpretation is concordant. Differential Diagnosis: 42-year-old male with longstanding history of alcohol abuse, now huffing dust off, presents with his sister, asking for rehab/detox from drugs and alcohol. The patient last drink alcohol about 3 weeks ago he says. He denies any SI or HI. He appears to be in mild alcohol withdrawal currently. Plan for CT scan of head is he recently sustained head trauma. Plan for basic labs and IV fluid hydration given his nausea. I will keep him in the emergency department to await case management/mental health evaluation for placement in detox facility. He may be able to use his benefits for this. The patient had labs checked in the emergency department which demonstrated anemia. The patient has a history of alcoholic gastritis based on EGD. His anemia is stable as compared to prior values. He denies any dark or bloody stools currently. CT scan was normal. Patient received Librium and Ativan overnight. He remained quite stable. I anticipate at 7:00 a.m., the case will be signed out to the oncoming provider Dr. Reddy pending case management evaluation. (Ester La) 0700: I assumed care of this patient from Dr. La at shift change. 0940: I consulted with the [facility] regarding this patient. They request that this patient follow up as an outpatient at the [facility] in [place]. (Moody Reddy) - Data Points Laboratory Results: Laboratory Results 07/08/18 23:27 07/08/18 23:27 07/09/18 07/08/18 07/08/18 00:30 23:27 23:27 WBC 7.69 10^3/uL 10^3/uL (3.80-9.50) RBC 2.80 10^6/uL L 10^6/uL (4.40-6.38) Hgb 8.9 g/dL L g/dL (13.7-17.5) Hct 27.3 % L % (40.0-51.0) MCV 97.5 fL fL (81.5-99.8) MCH 31.8 pg pg (27.9-34.1) MCHC 32.6 g/dL g/dL (32.4-36.7) RDW 14.1 % % (11.5-15.2) Plt Count 575 10^3/uL H 10^3/uL (150-400) MPV 8.9 fL fL (8.7-11.7) Neut % (Auto) 53.4 % % (39.3-74.2) Lymph % (Auto) 29.6 % % (15.0-45.0) Hickman % (Auto) 9.2 % % (4.5-13.0) Eos % (Auto) 5.1 % % (0.6-7.6) Baso % (Auto) 2.0 % H % (0.3-1.7) Nucleat RBC Rel Count 0.0 % % (0.0-0.2) Absolute Neuts (auto) 4.11 10^3/uL 10^3/uL (1.70-6.50) Absolute Lymphs (auto) 2.28 10^3/uL 10^3/uL (1.00-3.00) Absolute Monos (auto) 0.71 10^3/uL 10^3/uL (0.30-0.80) Absolute Eos (auto) 0.39 10^3/uL 10^3/uL (0.03-0.40) Absolute Basos (auto) 0.15 10^3/uL H 10^3/uL (0.02-0.10) Absolute Nucleated RBC 0.00 10^3/uL 10^3/uL (0-0.01) Immature Gran % 0.7 % % (0.0-1.1) Immature Gran # 0.05 10^3/uL 10^3/uL (0.00-0.10) Sodium 136 mEq/L mEq/L (135-145) Potassium 3.3 mEq/L L mEq/L (3.5-5.2) Chloride 107 mEq/L mEq/L (97-110) Carbon Dioxide 20 mEq/l L mEq/l (22-31) Anion Gap 9 mEq/L mEq/L (6-14) BUN 4 mg/dL L mg/dL (7-23) Creatinine 0.7 mg/dL mg/dL (0.7-1.3) Estimated GFR > 60 Glucose 98 mg/dL mg/dL (70-100) Calcium 8.7 mg/dL mg/dL (8.5-10.4) Total Bilirubin 0.8 mg/dL mg/dL (0.1-1.4) AST 55 IU/L IU/L (17-59) ALT 35 IU/L IU/L (21-72) Alkaline Phosphatase 119 IU/L IU/L (38-126) Total Protein 6.8 g/dL g/dL (6.3-8.2) Albumin 3.5 g/dL g/dL (3.5-5.0) Urine Opiates Screen NEGATIVE (NEGATIVE) Urine Barbiturates NEGATIVE (NEGATIVE) Ur Phencyclidine Scrn NEGATIVE (NEGATIVE) Ur Amphetamine Screen NEGATIVE (NEGATIVE) U Benzodiazepines Scrn NEGATIVE (NEGATIVE) Urine Cocaine Screen NEGATIVE (NEGATIVE) U Marijuana (THC) Screen NON-NEGATIVE H (NEGATIVE) Ethyl Alcohol < 10 mg/dL mg/dL (0-10) Medications Given: Discontinued Medications Chlordiazepoxide HCl (Librium) 50 mg PO EDNOW ONE Stop: 07/08/18 23:40 Last Admin: 07/08/18 23:40 Dose: 50 mg Sodium Chloride (Ns) 1,000 mls @ 0 mls/hr IV EDNOW ONE; Wide Open PRN Reason: Protocol Stop: 07/08/18 23:39 Last Admin: 07/08/18 23:45 Dose: 1,000 mls Lorazepam (Ativan Injection) 1 mg IVP EDNOW ONE Stop: 07/09/18 00:47 Last Admin: 07/09/18 00:54 Dose: 1 mg Departure - Departure Disposition: Home, Routine, Self-Care Clinical Impression: Alcohol abuse, Huffing, Blood loss anemia Condition: Good Instructions: Abuse of Alcohol (ED) Additional Instructions: 1. Go to the [facility] in [place]. This is between [address] on [address] 1[address]. 2. Return to the emergency department immediately for fever, vomiting, confusion , headache, abdominal pain or other worsening of condition. Referrals: [facility],. [Clinic] - As per Instructions [facility],. [Clinic] - As per Instructions
[2018-07-08 23:47] LABS: PLATELET COUNT 575 10^3/uL (150-400)
[2018-07-09] MEDS ORDERED: LORazepam 2 MG/ML INJ IVP ONE (00:46)
--- NOTE | 2018-07-09 06:31 | CPEKG ---
Test Reason : OPEN Blood Pressure : / mmHG Vent. Rate : 085 BPM Atrial Rate : 090 BPM P-R Int : 133 ms QRS Dur : 095 ms QT Int : 414 ms P-R-T Axes : 024 026 -09 degrees QTc Int : 493 ms Sinus rhythm Borderline prolonged QT interval Confirmed by Ester La ([id number]) on 07/09/2018 6:31:35 AM Referred By: Ester La Confirmed By:Ester La
--- NOTE | 2018-07-09 10:31 | ASMTLCPROG ---
Notes Note: Notes: This brief writer discussed and provided the patient with substance abuse treatment options/resources. The patient plans to follow up with [facility] and restart services. Date Signed: 07/09/2018 10:31 AM Electronically Signed By:Beronica Mayo
[2018-07-09 10:41] VITALS: BP 161/106
== END 2018-07-09 10:40 | disposition home or self-care (01) ==
DX: F18.10 Inhalant abuse, uncomplicated (principal); F10.20 Alcohol dependence, uncomplicated; E86.9 Volume depletion, unspecified; D50.0 Iron deficiency anemia secondary to blood loss (chronic); F43.10 Post-traumatic stress disorder, unspecified; I10 Essential (primary) hypertension
CPT/HCPCS: 80305; G0480; J2060

== ENCOUNTER 2018-07-11 00:43 | Emergency (ER) | payer MEDICAID ==
[2018-07-11] MEDS ORDERED: LORazepam 2 MG/ML INJ IVP ONE ×2 (00:50→03:49)
[2018-07-11] MEDS ORDERED: NS 1,000 ML IV ONE ×2 (00:50→03:48)
[2018-07-11] MEDS ORDERED: KETOROLAC 15 MG/1 ML SDV IVP ONE (00:51)
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
[2018-07-11] MEDS ORDERED: IOHEXOL 300 mgI/ML (OMNIPAQUE) 150 ML BTL IV ONE (01:12)
[2018-07-11 01:19] LABS: PLATELET COUNT 591 10^3/uL (150-400)
[2018-07-11 01:43] LABS: INR 1.19 (0.83-1.16); PROTIME(PATIENT) 15.3 SEC (12.0-15.0)
[2018-07-11] MEDS ORDERED: LORazepam 2 MG/ML INJ ONE (03:43)
[2018-07-11] MEDS ORDERED: AMOXICILLIN/CLAVULANATE POT 875/125 MG TAB PO ONE (05:39)
[2018-07-11] MEDS ORDERED: MAGNESIUM SULF 2 GM/WATER 50 ML IV ONE (05:39)
[2018-07-11] MEDS ORDERED: IOHEXOL 350mgI/ML (OMNIPAQUE) 150 ML BTL IV ONE (06:08)
[2018-07-11] MEDS ORDERED: LORazepam 1 MG TAB PO PRN (07:45)
[2018-07-11] MEDS ORDERED: LORazepam 2 MG/ML INJ IVP PRN (07:45)
[2018-07-11] MEDS ORDERED: ACETAMINOPHEN 325 MG TAB PO PRN (08:10)
[2018-07-11] MEDS ORDERED: PROTOCOL MAGNESIUM 1 DOSE IV PRN (08:14)
[2018-07-11] MEDS ORDERED: PROTOCOL POTASSIUM 1 DOSE MISC PRN (08:14)
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
[2018-07-11] MEDS ORDERED: oxyCODONE IR 5 MG TAB PO PRN (08:53)
[2018-07-11] MEDS ORDERED: PANTOPRAZOLE SODIUM 40 MG VIAL IVP SCH (09:00)
[2018-07-11] MEDS ORDERED: THIAMINE HCL 100 MG TAB PO SCH (09:00)
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
[2018-07-11 12:09] VITALS: BP 129/87
--- NOTE | 2018-07-12 06:41 | CPEKG ---
Test Reason : OPEN Blood Pressure : / mmHG Vent. Rate : 114 BPM Atrial Rate : 115 BPM P-R Int : 155 ms QRS Dur : 091 ms QT Int : 341 ms P-R-T Axes : 074 039 -75 degrees QTc Int : 470 ms Atrial fibrillation Borderline T abnormalities, inferior leads Confirmed by Albino Guevara ([id number]) on 07/12/2018 6:40:41 AM Referred By: Albino Guevara Confirmed By:Albino Guevara
--- NOTE | 2018-07-12 06:41 | CPEKG ---
Test Reason : OPEN Blood Pressure : / mmHG Vent. Rate : 105 BPM Atrial Rate : 106 BPM P-R Int : 137 ms QRS Dur : 091 ms QT Int : 366 ms P-R-T Axes : 036 006 -28 degrees QTc Int : 484 ms Sinus tachycardia Ventricular premature complex Borderline T abnormalities, inferior leads Borderline prolonged QT interval Confirmed by Albino Guevara ([id number]) on 07/12/2018 6:40:40 AM Referred By: Albino Guevara Confirmed By:Albino Guevara
== END 2018-07-11 12:09 | disposition home or self-care (01) ==
LOC: EDUNIT# → UNDOADMOB 07:41
DX: F10.220 Alcohol dependence with intoxication, uncomplicated (principal); E83.42 Hypomagnesemia; R09.02 Hypoxemia; J18.1 Lobar pneumonia, unspecified organism; S22.32XA Fracture of one rib, left side, initial encounter for closed fracture; D64.89 Other specified anemias; E86.0 Dehydration; I10 Essential (primary) hypertension; Y04.8XXA Assault by other bodily force, initial encounter; Y92.9 Unspecified place or not applicable; Y99.9 Unspecified external cause status; Y93.9 Activity, unspecified
CPT/HCPCS: 84484-ER; 96365; G0480; J1885; J2060; J3475; Q9967